=== PATIENT | female | born 1960 | race Caucasian/White ===

== ENCOUNTER 2017-09-26 21:24 | Inpatient (IN) | payer OTHER ==
[~2017-09-26] VITALS: Ht 160 cm; Wt 56.7 kg
[2017-09-26 21:26] VITALS: BP 168/80
[2017-09-26] MEDS ORDERED: LISINOPRIL20 MG PO (21:35)
--- NOTE | 2017-09-26 21:49 | NUR ---
FAMILY ARRIVED AND AT BEDSIDE
[2017-09-26 21:57] LABS: HEMATOCRIT 42.9 % (37.0-47.0); HEMOGLOBIN 14.7 gm/dL (12.0-15.0); MCHC 34.3 g/dL (28.0-37.0); MPV 7.5 fl. (7.2-11.1); NUCLEATED RBCS 0 /100WBC; PLATELET COUNT* 407 thou/uL (150-400); RBC 4.34 mil/uL (4.20-5.00); RDW-CV 12.4 % (10.5-14.5)
[2017-09-26 21:58] LABS: BE 0.3 mmol/L (-2 to +3); HCO3 22.8 mmol/L (22.0-26.0); PCO2 31.2 mmHg (35.0-45.0); PO2 70.1 mmHg (75.0-100.0); pH 7.482 (7.340-7.450)
[2017-09-26 22:00] LABS: CREATININE 1.2 mg/dL (0.6-1.3); POTASSIUM 3.4 mmol/L (3.5-5.1)
[2017-09-26 22:05] LABS: ALBUMIN 3.6 g/dL (3.4-5.0); TOTAL BILIRUBIN 0.3 mg/dL (<0.1-1.0); TOTAL PROTEIN 7.4 g/dL (6.4-8.2)
[2017-09-26] MEDS ORDERED: HYDROCHLOROTHIA25 M2 PO (22:38)
[2017-09-26] MEDS ORDERED: NORCO 10-325 T1 EACH PO (22:38)
[2017-09-26 22:41] LABS: ABSOLUTE LYMPHOCYTES 1.4 thou/uL (0.8-5.3); ABSOLUTE MONOCYTES 0.9 thou/uL (0.0-1.2); ABSOLUTE NEUTROPHILS 15.7 thou/uL (1.6-8.1); PLATELET ESTIMATE INCREASED
--- NOTE | 2017-09-26 23:30 | NUR ---
OBTAINED ROOM ASSIGNMENT FROM THE FINAL INSPECTOR AND TESTER PATIENT NOTIFIED
[2017-09-27] VITALS (8 sets, daily range): BP systolic 132–210; BP diastolic 42–86
[2017-09-27 02:10] LABS: INFLUENZA A ANTIGEN None Detected (None Detect); INFLUENZA B ANTIGEN None Detected (None Detect)
--- NOTE | 2017-09-27 05:32 | NUR ---
PATIENT ARRIVED VIA CART FROM ED AROUND 0015. PT REPORTING NAUSEA AND HEADACHE SINCE ARRIVAL. SEE MAR. NO VOMITTING YET. PT A/OX4, REPORTING BLURRY VISION THAT "IS GETTING BETTER". TELE MONITOR TRACING SR. BP'S ELEVATED, TRENDING DOWN. ON ROOM AIR. IVF INFUSING ORDERED. PT DID VOID THIS AM, BUT MISSED HAT-UNABLE TO MEASURE OR COLLECT UA AT THAT TIME. PT UNSTEADY ON FEET, UP WITH ASSIST X1. BEDALARM IN PLACE, WILL CONTINUE WITH PLAN OF CARE.
--- NOTE | 2017-09-27 07:30 | NUR ---
ASSUMED CARE OF PT ASSESSED AND DOCUMENTED. PT IS ON CARDIAC MONITER TRACING SR HR 70. PT IS A&O. SHE C/O HEAD PAIN AND WAS TREATED WITH MEDICATION BY OFF GOING RN. PT IS ON FALL RISK PER FACILITY PROTOCOL. SHE IS ON ROOM AIR. BED IN LOW POSITION CALL LIGHT IN REACH. WM.
[2017-09-27] MEDS ORDERED: ASPIR 8181 MG PO (09:23)
[2017-09-27] MEDS ORDERED: HYDROCHLOROTHIA25 M2 PO (09:23)
[2017-09-27 10:08] LABS: HEMATOCRIT 37.6 % (37.0-47.0); HEMOGLOBIN 12.8 gm/dL (12.0-15.0); MCH 33.7 pg (26.0-34.0); MCHC 33.9 g/dL (28.0-37.0); MCV 99.2 fL (80.0-100.0); MPV 7.2 fl. (7.2-11.1); RBC 3.79 mil/uL (4.20-5.00); RDW-CV 12.5 % (10.5-14.5); WBC 14.2 thou/uL (4.0-11.0)
[2017-09-27 10:21] LABS: ANION GAP 9 mmol/L (7-16); BUN 13 mg/dL (7-18); CALCIUM 8.1 mg/dL (8.5-10.1); CHLORIDE 109 mmol/L (98-107); CHOLESTEROL 201 mg/dL (<200); CO2 24 mmol/L (21-32); CREATININE 0.8 mg/dL (0.6-1.3); GLUCOSE 108 mg/dL (70-99); HDL CHOLESTEROL 47 mg/dL (>40); LDL CHOLESTEROL 139 mg/dL (<100); MAGNESIUM 1.9 mg/dL (1.8-2.4); POTASSIUM 3.5 mmol/L (3.5-5.1); SODIUM 142 mmol/L (136-145); TC:HDL 4.3 Ratio (Not establshd); TRIGLYCERIDE 77 mg/dL (<150); VLDL 15 mg/dL (<40)
[2017-09-27 10:22] LABS: SERUM ASSESSMENT Clear
[2017-09-27 10:46] LABS: URINE BILIRUBIN 1+ (Negative); URINE BLOOD TRACE (Negative); URINE CLARITY CLEAR; URINE COLOR YELLOW; URINE GLUCOSE-RANDOM NEGATIVE (Negative); URINE KETONES NEGATIVE (Negative); URINE LEUKOCYTES-REFLEX NEGATIVE (Negative); URINE NITRITE-REFLEX POSITIVE (Negative); URINE PROTEIN 1+ (Negative); URINE SPECIFIC GRAVITY >= 1.030 (1.005-1.030); URINE UROBILINOGEN 0.2 E.U./dl (0.2-1.0)
[2017-09-27 10:47] LABS: ICTOTEST (BILI CONFIRMATORY) Negative (Negative)
[2017-09-27 10:55] LABS: BACTERIA-REFLEX 1-9 Few /HPF (None Seen); CASTS None Seen /LPF (None Seen); MUCUS >6 Heavy strn/LPF (None Seen); SQUAMOUS >10 Many /LPF (0-3); URINE RBC None Seen /HPF (0-2); URINE WBC-REFLEX 0-5 Rare /HPF (0-5)
[2017-09-27 10:56] LABS: AMORPHOUS URATES Few /LPF (None Seen)
--- NOTE | 2017-09-27 12:44 | NUR ---
MET WITH PT AND DTR TO DISCUSS HOME SITUATION/DC PLANNING. PT LIVES WITH SPOUSE. SHE IS DISABLED AND HAS A HEARING COMING UP SOON. PT STATES HER SPOUSE JUST STARTED A NEW JOB AND THEY HAVEN'T HAD COVERAGE FOR ABOUT A MONTH OR MORE. PT FOLLOWS WITH DR JONY LAM, GETS HER MEDS AT [facility]. USES NO EQUIPMENT AND IS INDEPENDENT. GAVE PT UNISURED INFO PACKET WITH MEDICATION ASSIST INFO, FIND A PHYSICIAN, DISABILITY INFO AND DISCUSSED. ALSO GAVE PT NUMBER FOR [employer], SHE PLANS TO CONTACT RE: ASSIST WITH HOSPITAL BILL. 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 HOPES TO GO HOME
--- NOTE | 2017-09-27 13:30 | NUR ---
SENT DR ESPOSITO A YOU CALL MD RE PTS CAROTID RESULTS. PER DR ESPOSITO HAVE VASCULAR SURGURY CONSULTED. IF PT REFUSES TO STAY MAKE SURE VASCULAR CAN SEE RIGHT AWATY. SPOKE WITH PT AND SHE IS STAYING.
--- NOTE | 2017-09-27 13:53 | NUR ---
CALLED [place], [facility] FOR MED LIST AT [phone]. WILL SEND LIST TI DR ESPOSITO FOR APPROVAL.
--- NOTE | 2017-09-27 14:38 | EKG ---
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 Cutter: BD : 1960 Requested By: Ondina Mendes Order Number: [id number] MD: Rojelio De Santiago Measurements Intervals [place] Rate: 69 P: 64 IN: 158 QRS: 74 QRSD: 111 T: 62 QT: 441 QTc: 473 Interpretive Statements Sinus rhythm Baseline wander in lead(s) II,aVR,aVF,V2,V3,V4,V5,V6 Compared to ECG 08/05/2008 09:26:34 No significant changes Electronically Signed On 09-27-2017 14:37:53 CDT by Rojelio De Santiago [email or web address] <ELECTRONICALLY SIGNED> By: Rojelio De Santiago MD, FACC 09/27/17 1437 2135 2135 Rojelio De Santiago MD, FAC /EPI
--- NOTE | 2017-09-27 17:34 | NUR ---
PT HAS RESTED IN HER ROOM THIS SHIFT. DAUGHTERS HAVE BEEN AT BEDSIDE AND IS THERE NOW. UA OBTAINED AND SENT TO LAB. PTS MEDICATIONS UPDATED AFTER CALL TO HER PHARMACY. PAIN MEDS GIVEN AND HAVE BEEN EFFECTIVE. VASCULAR SURG HAS BEEN CONSULTED RE US CAROTIDS. EDUCATION GIVEN ON DEMAND. HOURLY ROUNDING COMPLETED. SPOKE WITH PT RE SMOKING CESSATION.
[2017-09-28] VITALS: BP 192/80
[2017-09-28 04:00] VITALS: BP 113/41
--- NOTE | 2017-09-28 06:28 | NUR ---
ASSUMED CARE AROUND 1930. PT A/OX4. ANXIOUS, NAUSEATED, AND REPORTING BACK PAIN AT START OF SHIFT. PRN MEDS GIVEN-SEE MAR. PT ALSO SHOWERED FOR PAIN RELIEF. TELE MONITOR TRACING SR. BP ELEVATED TONIGHT, PRN HYDRALAZINE GIVEN- BP DROPPED TO 89/35 AND TRENDING UP NOW. ON ROOM AIR. IVF INFUSING ORDERED. UP SBA. DAUGHTERS HERE HELPING WITH CARE. PT SLEPT SOME OF THE NIGHT. CALL LIGHT IN REACH, WILL CONTINUE WITH PLAN OF CARE.
[2017-09-28 08:18] VITALS: BP 132/51
[2017-09-28] MEDS ORDERED: LIPITOR 20 MG T20 M1 PO (08:22)
--- NOTE | 2017-09-28 09:26 | NUR ---
ASSUMED CARE OF PT THIS AM AROUND 0715- ADDRESSER IN PLACE ORDERED, TRACING SR- UPON ASSESSMENT PT NOTED TO BE RESTING IN BED, DAUGHTER AT SIDE VISITING- PT A&O X4- CONTINENT OF BOWEL AND BLADDER- SBA WITH TRANSFERS FOR SAFETY- LCTA, RESP EVEN AND UN-LABORED- VSS, O2 SAT 97% ON RA- ABDOMEN SOFT/ROUND/NON-TENDER, BS X4- PT REPORTS SMALL BM 09/27/17- IV NOTED TO RIGHT AC INTACT, IVF INFUSING PRESCIBED- NEW ORDERS NOTED THIS SHIFT FOR LIPITOR 20 Q HS- PLANNED ANGIOGRAM FRO THIS SHIFT, PT AWARE WITH ECHO EDGAR-PT C/O PAIN TO BACK 01/06- REPOSITIONING NOTED, PRN HYROCODNE 2 TABS GIVEN PER PT REQUEST- CALL LIGHT AND PERSONAL BELONGINGS WITH IN REACH- POOR PO INTAKE NOTED THIS AM WITH BREAKFAST- HOURLY ROUNDS IN PLACE R/T SAFETY/NEEDS- ALL NEEDS MET AT THIS TIME-WCTM
[2017-09-28 12:00] VITALS: BP 142/62
[2017-09-28 16:00] VITALS: BP 136/51
--- NOTE | 2017-09-28 17:26 | NUR ---
PT TIARRA RESTING IN BEDN SIDE CHAIR- FAIR PO INTAKE NOTED THIS SHIFT WITH MEALS- IV TO RIGHT AC INTACT AND SL- IVF D/C'D THIS SHIFT- UA NOTED TO BE POSITIVE FOR UTI, PT REPORTS BACK PAIN AND FOUL ODOR WITH URINATION- NOTIFIED WITH ORDERS OBTAINED FOR CIPRO 500 BID X 5 DAYS, PT UPDATED- PRN HYDROCODONE GIVEN X2 THIS SHIFT PER PT REQUEST, PT REPORTS MEICATION TO BE EFFECTIVE- SOMA X1 THIS SHIFT PER PT REQUEST- CTA COMPLETED AND UPDATED IN RESULTS FOR VIEWING- ECHO PLANNED EDGAR- CALL LIGHT AND PERSONAL BELONGINGS WITH IN REACH- PT MAKES NEEDS KNOWN- ALL NEEDS MET AT THIS TIME-WCTM
[2017-09-28 19:40] VITALS: BP 106/35
[2017-09-29] VITALS: BP 110/52
[2017-09-29 04:00] VITALS: BP 125/66
--- NOTE | 2017-09-29 07:02 | NUR ---
ASSUMED CARE AT 1940, ASSESSMENT CHARTED. PATIENT ALERT/ORIENTED X4, RESTING IN BED WITH FAMILY AT BEDSIDE. UP WITH ASSIST/CANE. STATES HAVING PAIN TO BACK, RECEIVED PAIN MEDICATION PRIOR TO SHIFT CHANGE, NOW RATING 3/10, REASSURANCE GIVEN. IV TO RIGHT AC REMOVED DUE TO LEAKING, NEW IV PLACED TO LEFT WRIST. DENIES DIZZINESS. BED ALARM ON. CALL LIGHT WITHIN REACH, ENCOURAGED TO CALL FOR NEEDS.
--- NOTE | 2017-09-29 07:12 | NUR ---
PATIENT FRUSTRATED THROUGH THE NIGHT WITH BED/CHAIR ALARM. REASSURANCE GIVEN. STATES HAVING BACK PAIN OFF AND ON, MEDS PER MAR WITH PARTIAL RELIEF NOTED. BED ALARM ON. WILL MONITOR.
[2017-09-29 08:00] VITALS: BP 117/59
[2017-09-29] MEDS ORDERED: CIPRO500 MG PO (08:09)
[2017-09-29] MEDS ORDERED: LEXAPRO 10 MG T10 M2 PO (08:21)
[2017-09-29 08:43] VITALS: BP 125/66
[2017-09-29 11:30] VITALS: BP 133/62
--- NOTE | 2017-09-29 13:48 | 2DMMODE ---
[place] [address] 2 D/M-MODE ECHOCARDIOGRAM Name: WAQAS LARRY Room: [address] IN [facility]#: [id number] Admission: 09/26/17 Attend Phys: Richard Hoffmann, Discharge: Date of : 56 Date of Service: 09/29/17 1348 Report #: [id number] THIS REPORT FOR: //name// APPROVED REPORT Study performed: 09/29/2017 10:53:29 EXAM: Comprehensive 2D, Doppler, and color-flow Echocardiogram Patient Location: In-Patient Room #: [facility] Status: routine BSA: 1.57 HR: 62 bpm BP: 125/66 mmHg Other Information Study Quality: Good Indications Murmur 2D Dimensions LVEF(%): 74.10 (>50%) IVSd: 9.75 (7-11mm) LVOT Diam: 18.66 (18-24mm) LVDd: 40.67 mm PWd: 10.97 (7-11mm) Ascending Ao: 27.61 (22-36mm) LVDs: 23.37 (25-40mm) Aortic Root: 28.09 mm Lee's LVEF: 74.10 % Volumes Left Atrial Volume (Systole) LA ESV Index: 29.00 mL/m2 Aortic Valve AoV Peak Alex.: 1.56 m/s AO Peak Gr.: 9.71 mmHg LVOT Max P.93 mmHg AO Mean Gr.: 4.60 mmHg LVOT Mean P.08 mmHg LVOT Max V: 1.32 m/s AO V2 VTI: 29.86 cm LVOT Mean V: 0.79 m/s TONYA (VTI): 2.86 cm2 LVOT V1 VTI: 31.25 cm Mitral Valve E/A Ratio: 1.11 MV Decel. Time: 216.52 [place] [address] 2 D/M-MODE ECHOCARDIOGRAM Name: WAQAS LARRY Room: [address] IN [facility].#: [id number] Admission: 09/26/17 Attend Phys: Richard Hoffmann, Discharge: Date of : 56 Date of Service: 09/29/17 1348 Report #: [id number] MV E Max Alex.: 0.86 m/s MV PHT: 62.79 ms MVA (PHT): 3.50 cm2 TDI E/Lateral E': 8.60 E/Medial E': 6.14 Medial E' Alex.: 0.14 m/s Lateral E' Alex.: 0.10 m/s Pulmonary Valve PV Peak Alex.: 1.09 m/s PV Peak Gr.: 4.76 mmHg Tricuspid Valve TR Peak Gr.: 24.62 mmHg RVSP: 29.62 mmHg Left Ventricle The left ventricle is normal size. There is normal LV segmental wall motion. There is normal left ventricular wall thickness. Left ventricular systolic function is normal. The left ventricular ejection fraction is within the normal range. LVEF is 60-65%. The left ventricular diastolic function is normal. Right Ventricle The right ventricle is normal size. The right ventricular systolic function is normal. Atria Left atrium is mildly dilated. The right atrium size is normal. Aortic Valve The aortic valve is normal in structure. No aortic regurgitation is present. There is no aortic valvular stenosis. Mitral Valve The mitral valve is normal in structure. Trace mitral regurgitation. No evidence of mitral valve stenosis. Tricuspid Valve The tricuspid valve is normal in structure. Mild tricuspid regurgitation. The RVSP is __29.6 mmHg. Pulmonic Valve The pulmonary valve is normal in structure. [place] [address] 2 D/M-MODE ECHOCARDIOGRAM Name: WAQAS LARRY Room: [address] IN .R.#: [id number] Admission: 09/26/17 Attend Phys: Richard Hoffmann, Discharge: Date of : 56 Date of Service: 09/29/17 1348 Report #: [id number] Great Vessels The aortic root is normal in size. IVC is normal in size and collapses with >50% inspiration Pericardium There is no pericardial effusion. <Conclusion> LVEF is 60-65%. Left atrium is mildly dilated. <ELECTRONICALLY SIGNED> By: Hosea Meyer MD, FACC 09/29/17 1348 1348 1348 Hosea Meyer MD, FACC /INF
--- NOTE | 2017-09-29 13:55 | NUR ---
DR EPSTEIN CALLED OK TO D/C PT.
--- NOTE | 2017-09-29 14:46 | NUR ---
ASSUMED CARE OF PT THIS AM ASSESSED AND DOCUMENTED. PT HAS BEEN D/C'D TO HOME. ALL CONSULTS OK WITH DC. EDUCATION GIVEN RE MEDICATIONS, FOLLOW-UPS, AND DRS ORDERS. ALL BELONGINGS PACKED UP AND LEFT WITH PT ACCOMPANIED BY STAFF AND FAMILY. IV AND CARDIAC MONITER D/C'D. SCRIPTS GIVEN.
--- NOTE | 2017-09-30 14:44 | CON ---
[address] [address] CONSULTATION Name: WAQAS LARRY Room: [address] IN M.R.#: [id number] Admission: 09/26/17 Attend Phys: Richard Hoffmann MD Discharge: 09/29/17 Date of : 56 Report #: [id number] THIS REPORT FOR: //name// CC: Masha Hoffmann DATE OF SERVICE: 09/29/2017 HISTORY OF PRESENT ILLNESS: The patient is a 57-year-old white female I was asked to see in the hospital today after she had a syncopal spell. The patient states that she had a stress test at [facility] back in 2003 that showed no significant heart disease. She does have a history of chest pain, however, and carries nitroglycerin. She does not exercise on a regular basis because of chronic back pain. Last week, she was not feeling well, was weak, had some vomiting, back pain and loose stools. On the day of admission, she got up, was feeling weak. She had some blurred vision. She went back to bed. She then get up to get out of bed and fell to the ground. She believed she had a brief loss of consciousness. An ambulance was called. She was brought here to [place] and admitted 3 days ago. She had noticed some blood in her stool, she believes from a hemorrhoid. She denied any chest pain, increased shortness of breath, palpitations, seizure activity or edema. PAST MEDICAL HISTORY: Otherwise significant for back surgery, hypertension. No history of diabetes. MEDICATIONS ON ADMISSION: Included lisinopril, hydrocodone for chronic back pain. ALLERGIES: SHE HAS INTOLERANCE TO CODEINE. FAMILY HISTORY: Grandparents had heart disease. SOCIAL HISTORY: She is . 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 She smoked up to 2 packs of cigarettes a day. No alcohol abuse. REVIEW OF SYSTEMS: No history of stroke, peptic ulcer disease, liver disease. She has had recurrent urinary tract infections. No cancer. PHYSICAL EXAMINATION: GENERAL: Revealed a middle-aged female who appeared in no acute distress. VITAL SIGNS: She had a blood pressure of 130/60, pulse 60. She is afebrile. HEENT: She was anicteric, conjunctivae pink. Mucous membranes moist. NECK: Veins nondistended. No carotid bruits. Neck supple. CHEST: Reveals coarse breath sounds bilaterally. CARDIOVASCULAR: Regular rate and rhythm. [place] [address] CONSULTATION Name: AWQAS LARRY Room: [address] IN ..#: [id number] Admission: 09/26/17 Attend Phys: Richard Hoffmann MD Discharge: 09/29/17 Date of : 56 Report #: [id number] ABDOMEN: Soft, nontender. EXTREMITIES: Had no edema. Posterior tibial pulse 1+ bilaterally. SKIN: Warm, dry. NEUROLOGIC: Nonfocal. LYMPHATIC: No adenopathy. MUSCULOSKELETAL: No joint effusion. Her ECG on admission 3 days ago unfortunately is not in her chart. On the monitor, she has been in a sinus rhythm. She has had multiple x-rays since her admission included head CT scan without contrast that was unremarkable. Her chest x-ray, normal heart size, clear lung armstrong. Carotid Doppler study 70% stenosis, left internal carotid artery. LABORATORY WORK: Sodium 142, creatinine 0.8. Liver function studies are normal. Cholesterol 201, triglycerides 77, HDL 47, LDL 139. TSH 0.58. White blood cell count 14.2, hemoglobin 12.8. IMPRESSION AND RECOMMENDATIONS: 1. Syncopal spell. Suspect vasovagal. I would recommend checking an echocardiogram. 2. Hypertension. The patient has been on JHONATAN inhibitor. 3. Carotid stenosis. The patient is being considered for surgery. She appears to have no cardiac contraindication. 4. Tobacco abuse. 5. Chronic back pain. 6. Hyperlipidemia. I would recommend a statin drug. <ELECTRONICALLY SIGNED> By: Hosea Meyer MD, FACC 09/30/17 1444 1318 [id number] Meyer MD, FAC /nt
== END 2017-09-29 14:45 | disposition home or self-care (01) | DRG 68 ==
LOC: M.ERS 21:24 → M.TBA-ER 22:54 → M.2W 22:54
PROVIDERS: Personal Emergency Response Attendant; ADMIT Internal Medicine
DX: I65.22 Occlusion and stenosis of left carotid artery (principal); I16.1 Hypertensive emergency; E87.2 Acidosis; N39.0 Urinary tract infection, site not specified; I10 Essential (primary) hypertension; F17.210 Nicotine dependence, cigarettes, uncomplicated; G89.29 Other chronic pain; M54.9 Dorsalgia, unspecified; E78.5 Hyperlipidemia, unspecified; G43.909 Migraine, unspecified, not intractable, without status migrainosus; K52.9 Noninfective gastroenteritis and colitis, unspecified; Z88.5 Allergy status to narcotic agent; Z88.7 Allergy status to serum and vaccine; Z88.8 Allergy status to other drugs, medicaments and biological substances

== ENCOUNTER → 2018-04-03 | Outpatient (CLI) | payer MEDICARE ==
[~2018-04-03] MED LIST: ASPIR 8181 MG PO; CIPRO500 MG PO; HYDROCHLOROTHIA25 M2 PO; LEXAPRO 10 MG T10 M2 PO; LIPITOR 20 MG T20 M1 PO; LISINOPRIL20 MG PO; NORCO 10-325 T1 EACH PO
== END ==
LOC: M.LAB 04:53
DX: Z01.812 Encounter for preprocedural laboratory examination (principal); I10 Essential (primary) hypertension

== ENCOUNTER 2018-06-06 13:46 | Emergency (ER) | payer MEDICARE ==
[~2018-06-06] VITALS: Ht 157.5 cm; Wt 49.0 kg
[2018-06-06] MEDS ORDERED: OXYCODONE HCL10 MG PO (14:04)
[2018-06-06 14:24] LABS: HEMATOCRIT 41.5 % (37.0-47.0); HEMOGLOBIN 14.3 gm/dL (12.0-15.0); MCH 34.4 pg (26.0-34.0); MCHC 34.6 g/dL (28.0-37.0); MCV 99.6 fL (80.0-100.0); MPV 6.8 fl. (7.2-11.1); NUCLEATED RBCS 0 /100WBC; PLATELET COUNT* 334 thou/uL (150-400); RBC 4.17 mil/uL (4.20-5.00); RDW-CV 12.2 % (10.5-14.5); WBC 10.8 thou/uL (4.0-11.0)
[2018-06-06 14:31] LABS: ANION GAP 9 mmol/L (7-16); BUN 13 mg/dL (7-18); CALCIUM 9.3 mg/dL (8.5-10.1); CHLORIDE 100 mmol/L (98-107); CO2 29 mmol/L (21-32); CREATININE 0.8 mg/dL (0.6-1.3); GLUCOSE 118 mg/dL (70-99); POTASSIUM 3.7 mmol/L (3.5-5.1); SODIUM 138 mmol/L (136-145)
[2018-06-06 14:38] LABS: ALBUMIN 3.7 g/dL (3.4-5.0); ALKALINE PHOSPHATASE 136 U/L (46-116); LIPASE 119 U/L (73-393); SGOT 14 U/L (15-37); SGPT 17 U/L (30-65); TOTAL BILIRUBIN 0.3 mg/dL (<0.1-1.0); TOTAL PROTEIN 7.9 g/dL (6.4-8.2); TROPONIN-I LEVEL <0.06 ng/mL (<0.06)
[2018-06-06 14:53] LABS: URINE BILIRUBIN NEGATIVE (Negative); URINE BLOOD 1+ (Negative); URINE CLARITY CLEAR; URINE COLOR YELLOW; URINE GLUCOSE-RANDOM NEGATIVE (Negative); URINE KETONES NEGATIVE (Negative); URINE LEUKOCYTES-REFLEX NEGATIVE (Negative); URINE NITRITE-REFLEX NEGATIVE (Negative); URINE PROTEIN TRACE (Negative); URINE UROBILINOGEN 0.2 E.U./dl (0.2-1.0)
[2018-06-06 15:01] LABS: SQUAMOUS 0-3 Few /LPF (0-3)
[2018-06-06 15:02] LABS: BACTERIA-REFLEX 1-9 Few /HPF (None Seen); HYALINE CASTS 0-3 Few /LPF (None Seen); MUCUS 0-3 Light strn/LPF (None Seen); URINE RBC 0-2 Rare /HPF (0-2); URINE WBC-REFLEX 0-5 Rare /HPF (0-5)
[2018-06-06 15:03] LABS: CRYSTALS None Seen /LPF (None Seen)
[2018-06-06 15:21] LABS: ABSOLUTE LYMPHOCYTES 1.1 thou/uL (0.8-5.3); ABSOLUTE MONOCYTES 0.2 thou/uL (0.0-1.2); ABSOLUTE NEUTROPHILS 9.5 thou/uL (1.6-8.1); PLATELET ESTIMATE ADEQUATE
[2018-06-06] MEDS ORDERED: ZOFRAN4 MG PO (18:27)
[2018-06-06] MEDS ORDERED: FLAGYL500 M1 PO (18:27)
[2018-06-06] MEDS ORDERED: CIPRO500 M1 PO (18:27)
[2018-06-06] MEDS ORDERED: PERCOCET 5-3251 EACH PO (18:27)
[2018-06-06 18:53] VITALS: BP 182/77
--- NOTE | 2018-06-08 12:17 | EKG ---
[place] [address] ELECTROCARDIOGRAM REPORT Name: WAQAS LARRY [id number] Admission: 06/06/18 Attend Phys: Discharge: 06/06/18 Date of : 56 Report #: [id number] THIS REPORT FOR: //name// [facility] ED Test Date: 2018-06-06 Test Time: 14:10:54 Pat Name: WAQAS LARRY Department: Room: Gender: F Electrical Assembly Technician: Altagracia WEBSTER : 1960 Requested By: Nannette Ledbetter Order Number: [id number] MD: Hosea Meyer Measurements Intervals [place] Rate: 77 P: 57 WV: 146 QRS: 72 QRSD: 110 T: 52 QT: 425 QTc: 482 Interpretive Statements Sinus rhythm Probable left ventricular hypertrophy Compared to ECG 09/26/2017 21:35:43 No significant changes Electronically Signed On 06-08-2018 12:17:08 PRODUCT CRAFTSMAN by Hosea Meyer [email or web address] <ELECTRONICALLY SIGNED> By: Hosea Meyer MD, [facility] 06/08/18 1217 1410 1410 Hosea Meyer MD, FAC /EPI
== END 2018-06-06 19:19 | disposition home or self-care (01) ==
LOC: M.ERS 13:46
PROVIDERS: Nurse Practitioner Family
DX: K52.9 Noninfective gastroenteritis and colitis, unspecified (principal); G89.29 Other chronic pain; M54.5 Low back pain; K59.00 Constipation, unspecified; I10 Essential (primary) hypertension; G43.909 Migraine, unspecified, not intractable, without status migrainosus; Z98.890 Other specified postprocedural states; Z88.5 Allergy status to narcotic agent; Z88.7 Allergy status to serum and vaccine; Z88.8 Allergy status to other drugs, medicaments and biological substances

== ENCOUNTER 2019-01-26 07:43 | Inpatient (IN) | payer MEDICARE ==
[~2019-01-26] VITALS: Ht 152.4 cm; Wt 54.9 kg
[~2019-01-26 07:43] MED LIST changes: +CIPRO500 M1 PO; +FLAGYL500 M1 PO; +OXYCODONE HCL10 MG PO; +PERCOCET 5-3251 EACH PO; +ZOFRAN4 MG PO
[2019-01-26 07:44] VITALS: BP 191/97
[2019-01-26] MEDS ORDERED: HYDROCODON-ACE1 EAC7 PO (07:49)
[2019-01-26] MEDS ORDERED: HYDROCHLOROTHIA25 M2 PO (07:50)
[2019-01-26] MEDS ORDERED: COLACE100 MG PO (07:50)
[2019-01-26] MEDS ORDERED: PLAVIX 75 MG TA75 M1 PO (07:50)
[2019-01-26] MEDS ORDERED: CARISOPRODOL 3350 MG PO (07:50)
[2019-01-26] MEDS ORDERED: DIPHENHIST50 MG PO (07:51)
[2019-01-26 08:25] LABS: HEMATOCRIT 46.1 % (37.0-47.0); HEMOGLOBIN 15.5 gm/dL (12.0-15.0); MCH 33.1 pg (26.0-34.0); MCHC 33.6 g/dL (28.0-37.0); MCV 98.4 fL (80.0-100.0); MPV 6.8 fl. (7.2-11.1); NUCLEATED RBCS 0 /100WBC; PLATELET COUNT* 416 thou/uL (150-400); RBC 4.69 mil/uL (4.20-5.00); RDW-CV 13.4 % (10.5-14.5); WBC 20.6 thou/uL (4.0-11.0)
[2019-01-26 08:33] LABS: ANION GAP 14 mmol/L (7-16); BUN 15 mg/dL (7-18); CALCIUM 9.4 mg/dL (8.5-10.1); CHLORIDE 104 mmol/L (98-107); CO2 23 mmol/L (21-32); CREATININE 1.1 mg/dL (0.6-1.3); GLUCOSE 177 mg/dL (70-99); POTASSIUM 3.9 mmol/L (3.5-5.1); SODIUM 141 mmol/L (136-145)
[2019-01-26 08:42] LABS: ALBUMIN 3.9 g/dL (3.4-5.0); ALKALINE PHOSPHATASE 284 U/L (46-116); LIPASE 72 U/L (73-393); SGOT 21 U/L (15-37); SGPT 21 U/L (30-65); TOTAL BILIRUBIN 0.4 mg/dL (<0.1-1.0); TOTAL PROTEIN 7.3 g/dL (6.4-8.2); TROPONIN-I LEVEL <0.06 ng/mL (<0.06)
--- NOTE | 2019-01-26 09:08 | NUR ---
CT ABD/PEL COMPLEATED PAteint returned to ed
[2019-01-26 09:13] LABS: ABSOLUTE MONOCYTES 0.6 thou/uL (0.0-1.2); ANISOCYTOSIS 1+; PLATELET ESTIMATE ADEQUATE; POIKILOCYTOSIS 1+
--- NOTE | 2019-01-26 13:53 | NUR ---
DR. ESPOSITO PAGED AT THIS TIME DUE TO PT HIGH BP.
[2019-01-26 14:34] LABS: HEMATOCRIT 46.7 % (37.0-47.0); HEMOGLOBIN 15.4 gm/dL (12.0-15.0)
[2019-01-26 14:48] VITALS: BP 205/91
--- NOTE | 2019-01-26 14:48 | NUR ---
REPORT GIVEN TO DOMENICA ZEE WHO IS TO ASSUME PT CARE INPATIENT NURSE.
[2019-01-26 16:25] VITALS: BP 169/73
--- NOTE | 2019-01-26 16:43 | NUR ---
ASSESSMENT COMPLETE. PT ADMITTED WITH COLITIS. GI CONSULT CALLED BY RN. PT IS ALERT AND ORIENTED X4. IV FLUIDS INFUSING. IV PAIN MEDICATION GIVEN NEEDED. PT HAVING DIARRHEA PER PT REPORT, HAT IN TOILET FOR SAMPLE. ISOLATION IN PLACE FOR PENDING CDIFF. PT IS FALL RISK, UP WITH ONE ASSIST. PT IS ON ROOM AIR. BLOOD PRESSURE ELEVATED AT ADMISSION TO FLOOR, PRN HYDRALAZINE GIVEN BP NOW STABLE. SEE ASSESSMENT AND VITALS FOR OTHER DETAILS. CALL LIGHT WITHIN REACH, WILL CONTINUE PLAN OF CARE
--- NOTE | 2019-01-26 17:23 | NUR ---
THIS NURSE AND RETAIL WAREHOUSE SUPERVISOR DEANGELO IN PATIENT ROOM AND NOTICED WOUND TO LEFT THIGH. NURSE ASKED PATIENT ABOUT IT AND SHE SAID "ITS A BLISTER BUT ITS HEALING" NURSE EXPLAINED TO PATIENT PROCESS OF TAKING PICS ON ADMISSION AND DISCHARGE AND PATIENT SAID "NO YOU ARE NOT". PATIENT REFUSING PICTURES AT THIS TIME.
--- NOTE | 2019-01-26 18:34 | EKG ---
[place] [address] ELECTROCARDIOGRAM REPORT Name: WAQAS LARRY Room: [address] ADM IN M.R.#: [id number] Admission: 01/26/19 Attend Phys: Richard Hoffmann MD Discharge: Date of : 56 Report #: [id number] THIS REPORT FOR: //name// [facility] ED Test Date: 2019-01-26 Test Time: 08:35:14 Pat Name: WAQAS LARRY Department: Room: [facility] Gender: F Business Segment Manager: : 1960 Requested By: Doe Herman Order Number: [id number] MD: Rojelio De Santiago Measurements Intervals [place] Rate: 103 P: 65 MD: 158 QRS: 77 QRSD: 110 T: 17 QT: 388 QTc: 508 Interpretive Statements Sinus tachycardia Probable left atrial enlargement Borderline prolonged QT interval Compared to ECG 06/06/2018 14:10:54 Sinus rhythm no longer present Electronically Signed On 01-26-2019 18:34:00 CDT by Rojelio De Santiago [email or web address] <ELECTRONICALLY SIGNED> By: Rojelio De Santiago MD, [facility] 01/26/19 1834 0835 0835 Rojelio De Santiago MD, [facility] /EPI
[2019-01-26 20:20] VITALS: BP 199/101
[2019-01-26 22:52] LABS: HEMATOCRIT 42.6 % (37.0-47.0); HEMOGLOBIN 14.3 gm/dL (12.0-15.0)
[2019-01-27 01:10] VITALS: BP 167/84
[2019-01-27 04:16] LABS: HEMATOCRIT 39.4 % (37.0-47.0); HEMOGLOBIN 13.6 gm/dL (12.0-15.0); MCH 33.9 pg (26.0-34.0); MCHC 34.6 g/dL (28.0-37.0); MCV 98.1 fL (80.0-100.0); MPV 7.4 fl. (7.2-11.1); RBC 4.02 mil/uL (4.20-5.00); RDW-CV 13.6 % (10.5-14.5); WBC 14.8 thou/uL (4.0-11.0)
[2019-01-27 04:43] LABS: ALBUMIN 2.4 g/dL (3.4-5.0); CALCIUM 8.2 mg/dL (8.5-10.1); CREATININE 0.8 mg/dL (0.6-1.3); MAGNESIUM 1.8 mg/dL (1.8-2.4); POTASSIUM 3.5 mmol/L (3.5-5.1); TOTAL BILIRUBIN 0.3 mg/dL (<0.1-1.0); TOTAL PROTEIN 5.5 g/dL (6.4-8.2)
--- NOTE | 2019-01-27 05:29 | NUR ---
PATIENT SLEPT VERY LITTLE THIS SHIFT. IV FLUIDS AND ANTIBIOTICS WERE GIVEN ORDERED. PATIENT HAD POOR PAIN CONTROL WITH IV FENTANYL STATED IT HELPED BUT WAS NOT LASTING LONG. AFTER SEVERAL DOSES PATIENT WAS AGREEABLE TO TAKE HYDROCODONE WITH SOME PO PHENERGRAN THIS MORNING AND STATED SHE HAD MUCH BETTER RELIEF. PATIENT HAS BEEN NPO EXCEPT MEDS AND ICE CHIPS. PATIENT STILL HAVING WATERY STOOLS. WILL CONTINUE TO MONITOR.
[2019-01-27 09:00] VITALS: BP 157/62
[2019-01-27] MEDS ORDERED: AMITRIPTYLINE H25 M2 PO (17:55)
--- NOTE | 2019-01-27 18:27 | NUR ---
I ASSUMED CARE OF THE PATIENT AT 0700. SHE IS ALERT AND ORIENTED X4 AND IS UP AD KHANH TO THE BATHROOM. SHE HAD ZERO BOWEL MOVEMENTS TODAY. BED IS IN THE LOW LOCKED POSITION AND CALL LIGHT IS IN REACH. SHE WENT TO CT AT 0900. RT WAS IN TO SEE HER. FLUIDS ARE FINISHED UP AND MEDS WERE GIVEN. HOURLY ROUNDING WAS COMPLETED AND PATIENT NEEDS WERE MET. PAIN MEDS WERE GIVEN PRN. SHE IS PROGRESSING TOWARDS HER GOALS. UNABLE TO OBTAIN STOOL SAMPLE THAT IS NOT CONTAMINATED WITH URINE. ISOLATION MAINTAINED. WILL CONTINUE TO MONITOR.
[2019-01-27 20:00] VITALS: BP 157/70
--- NOTE | 2019-01-28 06:22 | NUR ---
PATIENT SLEPT PART OF THE NIGHT. IV REMAINS SALINE LOCKED. IV ANTIBIOTICS WERE GIVEN ORDERED. PATIENT WAS GIVEN PAIN MEDICINE WITH SOME RELIEF. PATIENT STILL USING HEATING PAD FOR ABDOMINAL PAIN WELL. PATIENT HAS NOT HAD ANY STOOLS THIS SHIFT. WILL CONTINUE TO MONITOR.
[2019-01-28 07:50] VITALS: BP 184/91
[2019-01-28] MEDS ORDERED: AMLODIPINE BESY10 MG PO (09:43)
--- NOTE | 2019-01-28 14:53 | CON ---
[address] [address] CONSULTATION Name: WAQAS LARRY Room: [address] IN .R.#: [id number] Admission: 01/26/19 Attend Phys: Richard Hoffmann MD Discharge: Date of : 56 Report #: [id number] THIS REPORT FOR: //name// CC: Masha Hoffmann DICTATED BY: Juliana Hernandez [facility] DATE OF SERVICE: 01/27/2019 Please note, at the time of this dictation, the patient was seen and physically examined by myself. REASON FOR CONSULTATION: Abdominal pain, history of ischemic colitis and constipation. HISTORY OF PRESENT ILLNESS: This is a 58-year-old female who presented with a 2-day history of worsening of unrelenting abdominal pain with acute onset. She also had nausea and vomiting and then she had some diarrhea. She states she did not have any bright red blood noted in her stools like she had in the past. She was having left lower quadrant pain, which then kind of started radiating over into the right side. She states she felt like she was chilling and had a fever, and she has had numerous episodes of colitis in the past, with the last one being back in July. She has been told to try MiraLax. She was unable to tolerate MiraLax. She has no medication coverage on her insurance, so she has just been doing Colace and then milk of magnesia periodically. She states her bowels do move daily, but when she describes them, they are large, round, hard balls that she has on a daily basis. The patient states that she did see her vascular surgeon because she has significant peripheral vascular disease. He did have a CT angio on her in October and all was good. The patient does have a history of ongoing back pain, in which she takes chronic pain medications for at home as well. Earlier this year in 2018, she had a colonoscopy that showed moderate left-sided diverticular disease and external hemorrhoids at that time. ALLERGIES: CODEINE, CYCLOBENZAPRINE, MORPHINE, AND TETANUS. MEDICATIONS: From home, Plavix, hydrocodone, HCTZ, carisoprodol, docusate, and Benadryl. PAST MEDICAL HISTORY: Peripheral arterial disease, hypertension, migraines, and chronic back pain. PAST SURGICAL HISTORY: Recently, a carotid endarterectomy in October of this year[place] [address] CONSULTATION Name: WAQAS LARRY John Room: [address]#: [id number] Admission: 01/26/19 Attend Phys: Richard Hoffmann MD Discharge: Date of : 56 Report #: [id number] SOCIAL HISTORY: Smoking, [id number] history. REVIEW OF SYSTEMS: Twelve-point review of systems is essentially negative except what is mentioned in the HPI. PHYSICAL EXAMINATION: VITAL SIGNS: Temperature 36.7, pulse 112, respirations 16, blood pressure 167/84. HEART: Regular rate and rhythm. LUNGS: Clear. ABDOMEN: Soft with diffuse tenderness noted throughout and positive bowel sounds. LABORATORY DATA: Hemoglobin is 13.6, white count is 14.8, and platelets 273. GFR is 73. CT of the abdomen and pelvis shows thickening of the descending and sigmoid, which is more significant than earlier, back in 05/2018, did not show any occlusions at that time. IMPRESSION: 1. Abdominal pain. 2. Constipation. 3. Nausea and vomiting secondary to above. 4. Leukocytosis. 5. History of peripheral vascular disease. 6. History of colonic ischemia. 7. Anticoagulant therapy and Plavix secondary to her peripheral vascular disease. PLAN: 1. CTA pending. 2. We will continue her antibiotics. 3. Attempt to do a better bowel regimen. We will give her some magnesium oxide 400 mg 2 tablets t.i.d. and senna 2 b.i.d. 4. We will see how above works in getting her bowels to move more regularly. Thank you for allowing us to participate in this patient's care. Please do not hesitate to call with any questions in regard to this consult. <ELECTRONICALLY SIGNED> By: Niall Woods MD 01/28/19 1453 1139 [id number] Woods MD /nt
--- NOTE | 2019-01-28 16:15 | NUR ---
REC'D PATIENT FROM 3RD FLOOR TRANSFER. REPORT REC'D FROM TRANSFERRING RN. PATIENT RESTING IN BED. KPAD TO BACK. PATIENT DENIES NURSING NEEDS AT THIS TIME. RT FA SL SITE NOTED WNL. PATIENT INDEP IN RM. ~TJRN
--- NOTE | 2019-01-28 16:39 | NUR ---
PATIENT STARTED ON REG DIET THIS AFTERNOON, PATIENT ONLY TAKING SMALL BITES. PRN VICODIN AND PHENERGAN GIVEN PER ORDERS. CDIFF ISOLATION LIFTED, NO STOOLS NOTED IN 48 HOURS. VASCULAR SAW PATIENT TODAY, NO NEW ORDERS. ABD XRAY THIS AFTERNOON, NEGATIVE. PATIENT UP AD KHANH. PATIENT TRANSFERRED TO ROOM 103 THIS EVENING. REPORT GIVEN TO DOMENICA VALLEJO.
[2019-01-28 17:06] VITALS: BP 129/65
[2019-01-28 20:11] VITALS: BP 153/77
--- NOTE | 2019-01-29 03:42 | NUR ---
I SENT A MESSAGE TO THE [facility] DOCTOR AT 0345 AFTER LETTING THE THREAD GRINDER TOOL KNOW THAT THIS PATIENT HAD NO IV ACCESS. SHE HAS HAD 2 INFILTRATED IV IN THE PAST 24 HOURS AND I WAS UNABLE TO PLACE IV SUCESSFULLY WITH THE AID OF VEIN FINDER WELL. SHE ONLY HAS SCHEDULED FLAGY ON THE AUG. I REQUESTED THAT AN ORAL ANTIBIOTIC BE PRESCIRBED IF POSSIBLE AND THAT SHE DID NOT HAVE IV ACCESS.
--- NOTE | 2019-01-29 04:13 | NUR ---
DR WARD CALLED AT 0412 AND VERBALLY ORDERED FOR FLAGYL 500 MG TID
[2019-01-29 04:34] LABS: HEMATOCRIT 28.4 % (37.0-47.0); MCH 34.1 pg (26.0-34.0); MCV 97.6 fL (80.0-100.0); MPV 6.7 fl. (7.2-11.1); RBC 2.9 mil/uL (4.20-5.00); RDW-CV 13.4 % (10.5-14.5); WBC 7.9 thou/uL (4.0-11.0)
[2019-01-29 04:35] LABS: HEMOGLOBIN 9.9 gm/dL (12.0-15.0)
[2019-01-29 04:45] LABS: CALCIUM 7.9 mg/dL (8.5-10.1); CREATININE 0.7 mg/dL (0.6-1.3); MAGNESIUM 1.7 mg/dL (1.8-2.4); POTASSIUM 3.2 mmol/L (3.5-5.1)
--- NOTE | 2019-01-29 04:50 | NUR ---
PATIENT GLUCOSE LEVEL IS 50. HAVING HER DRINK SUGARY BEVERAGE WILL RECHECK IN 45 MIN
--- NOTE | 2019-01-29 05:32 | NUR ---
rechecked blood sugar is now 102
--- NOTE | 2019-01-29 06:17 | NUR ---
PATIENT REQUESTED PAIN MEDS STEADILY THROUGH SHIFT. SHE WAS ABLE TO AMBULATE TO GET SOME RELIEF FROM GAS PAINS. SHE CONTINUED TO TRY AND HAVE A BM THROUGH THE NIGHT. SHE DID HAVE A LAB DRAW WHICH SHOWED HER BLOOD GLUCOSE AT 50 AT 0445 SO I GAVE HER SOME SODA CHECKED AGAIN AT 0530 AND IT WAS 102. SHE RATED HER PAIN AT 4/10 AT 0600 ROUNDS. WAS NOT ABLE TO GET AN IV SO I CALLED DR WARD AND WAS ABLE TO GET AN ORDER FOR ORAL FLAGYL. SHE IS ON NO OTHER IV MEDS AT THIS TIME.
[2019-01-29 07:52] VITALS: BP 115/53
[2019-01-29] MEDS ORDERED: METRONIDAZOLE500 M4 PO (10:04)
[2019-01-29] MEDS ORDERED: MAGOX 400400 MG PO (10:04)
[2019-01-29] MEDS ORDERED: CIPRO500 MG PO (10:04)
[2019-01-29] MEDS ORDERED: DOK PLUS TABLE1 EACH PO (10:04)
[2019-01-29] MEDS ORDERED: PHENERGAN 25 MG25 M1 PO (10:11)
--- NOTE | 2019-01-29 10:30 | NUR ---
cm completed initial assessment to [facility] on role of cm and to discuss d/c planning. pt alert and conversational. 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 pt asked about assistance w/transportaion home b/c her is work until this evening. cm provided a voucher for taxi. pt denies and needs from cm at this time. has a 'walking stick" and states "i dont need any home health," cm inquired about hh/snf hx. pt became tearful as she talked about her mother passing a week a/g. cm provided empathetic listening and offered to have adalberto talk w/pt. pt refused. stated, she will use bereavement w/hospice they used for her mother. cm to cont to follow to assist as needed.
[2019-01-29 10:58] VITALS: BP 115/53
--- NOTE | 2019-01-29 11:39 | NUR ---
REVIEWED STUDENT NURSE CHARTING AND AGREE
--- NOTE | 2019-01-29 11:39 | NUR ---
PT DISCHARGED AND LEFT UNIT AT 1138 TO HOME WITH NURSING STAFF AND A CAB VOUCHER. NO IV. PAIN CONTROLLED. PT STABLE UPON DISCHARGE. PAPER SCRIPTS AND CARE NOTES GIVEN. PERSONAL ITEMS SENT WITH PT
== END 2019-01-29 11:38 | disposition home or self-care (01) | DRG 377 ==
LOC: M.ERS 07:43 → M.TBA-ER 09:43 → M.3W 09:43 → M.ORTHSURG 01-28 16:05
PROVIDERS: Emergency Medicine; ADMIT Internal Medicine
DX: K92.2 Gastrointestinal hemorrhage, unspecified (principal); K55.042 Diffuse acute infarction of large intestine; R65.10 Systemic inflammatory response syndrome (SIRS) of non-infectious origin without acute organ dysfunction; E44.0 Moderate protein-calorie malnutrition; I74.10 Embolism and thrombosis of unspecified parts of aorta; K55.1 Chronic vascular disorders of intestine; I10 Essential (primary) hypertension; G43.909 Migraine, unspecified, not intractable, without status migrainosus; G89.29 Other chronic pain; I73.9 Peripheral vascular disease, unspecified; M54.9 Dorsalgia, unspecified; D72.829 Elevated white blood cell count, unspecified; F17.210 Nicotine dependence, cigarettes, uncomplicated; I16.0 Hypertensive urgency; K59.09 Other constipation; I65.29 Occlusion and stenosis of unspecified carotid artery; Z79.82 Long term (current) use of aspirin; Z88.6 Allergy status to analgesic agent; Z88.7 Allergy status to serum and vaccine; Z79.01 Long term (current) use of anticoagulants; Z79.891 Long term (current) use of opiate analgesic; Z79.899 Other long term (current) drug therapy

== ENCOUNTER 2019-02-18 16:47 | Emergency (ER) | payer MEDICARE ==
[~2019-02-18] VITALS: Ht 157.5 cm; Wt 52.2 kg
[~2019-02-18 16:47] MED LIST changes: +AMITRIPTYLINE H25 M2 PO; +AMLODIPINE BESY10 MG PO; +CARISOPRODOL 3350 MG PO; +COLACE100 MG PO; +DIPHENHIST50 MG PO; +DOK PLUS TABLE1 EACH PO; +HYDROCODON-ACE1 EAC7 PO; +MAGOX 400400 MG PO; +METRONIDAZOLE500 M4 PO; +PHENERGAN 25 MG25 M1 PO; +PLAVIX 75 MG TA75 M1 PO
[2019-02-18] MEDS ORDERED: NORCO 10-325 T1 EACH PO (17:08)
[2019-02-18] MEDS ORDERED: XANAX 0.25 MG0.25 MG PO (17:10)
[2019-02-18] MEDS ORDERED: SENOKOT-S1 TA2 PO (17:10)
[2019-02-18 17:16] LABS: URINE BILIRUBIN NEGATIVE (Negative); URINE BLOOD NEGATIVE (Negative); URINE CLARITY CLEAR; URINE COLOR YELLOW; URINE GLUCOSE-RANDOM NEGATIVE (Negative); URINE KETONES NEGATIVE (Negative); URINE LEUKOCYTES-REFLEX TRACE (Negative); URINE NITRITE-REFLEX NEGATIVE (Negative); URINE PROTEIN NEGATIVE (Negative); URINE SPECIFIC GRAVITY 1.015 (1.005-1.030); URINE UROBILINOGEN 0.2 E.U./dl (0.2-1.0)
[2019-02-18 17:33] LABS: HYALINE CASTS 4-10 Moderate /LPF (None Seen); MUCUS None Seen strn/LPF (None Seen); SQUAMOUS >10 Many /LPF (0-3)
[2019-02-18 17:34] LABS: BACTERIA-REFLEX 1-9 Few /HPF (None Seen); CRYSTALS None Seen /LPF (None Seen); URINE RBC None Seen /HPF (0-2); URINE WBC-REFLEX 0-5 Rare /HPF (0-5)
[2019-02-18 17:45] LABS: ABSOLUTE LYMPHOCYTES 1.6 thou/uL (0.8-5.3); ABSOLUTE NEUTROPHILS 7.2 thou/uL (1.6-8.1); BASOPHILS 0.3 %; EOSINOPHILS 0.2 %; HEMATOCRIT 34.5 % (37.0-47.0); HEMOGLOBIN 11.6 gm/dL (12.0-15.0); LYMPHOCYTES 16.3 %; MCHC 33.7 g/dL (28.0-37.0); MCV 97.9 fL (80.0-100.0); MONOCYTES 10.3 %; MPV 6.5 fl. (7.2-11.1); NUCLEATED RBCS 0 /100WBC; PLATELET COUNT* 650 thou/uL (150-400); POLYS 72.9 %; RBC 3.52 mil/uL (4.20-5.00); RDW-CV 14.1 % (10.5-14.5); WBC 9.9 thou/uL (4.0-11.0)
[2019-02-18 17:56] LABS: CALCIUM 8.1 mg/dL (8.5-10.1); CREATININE 1.1 mg/dL (0.6-1.3); POTASSIUM 3.9 mmol/L (3.5-5.1)
[2019-02-18 18:01] LABS: ALBUMIN 2.2 g/dL (3.4-5.0); TOTAL BILIRUBIN 0.2 mg/dL (<0.1-1.0); TOTAL PROTEIN 6.7 g/dL (6.4-8.2)
[2019-02-18] MEDS ORDERED: NORCO 5-325 TA1 EAC1 PO (21:49)
[2019-02-18 22:00] VITALS: BP 138/78
== END 2019-02-18 22:01 | disposition home or self-care (01) ==
LOC: M.ERS 16:47
PROVIDERS: Nurse Practitioner Family
DX: K52.9 Noninfective gastroenteritis and colitis, unspecified (principal); I10 Essential (primary) hypertension; G43.909 Migraine, unspecified, not intractable, without status migrainosus; G89.29 Other chronic pain; F17.200 Nicotine dependence, unspecified, uncomplicated; Z98.890 Other specified postprocedural states; Z88.5 Allergy status to narcotic agent; Z88.7 Allergy status to serum and vaccine; Z88.2 Allergy status to sulfonamides

== ENCOUNTER 2019-02-23 00:41 | Inpatient (IN) | payer MEDICARE ==
[2019-02-23] VITALS (7 sets, daily range): BP systolic 132–219; BP diastolic 78–95
[~2019-02-23] VITALS: Ht 157.5 cm; Wt 57.0 kg
--- NOTE | ~2019-02-23 | PROC ---
[address] [address] PROCEDURE REPORT Name: WAQAS LARRY Room: [address] IN .R.#: [id number] Admission: 02/23/19 Attend Phys: Stella Macias MD Discharge: Date of : 56 Report #: [id number] THIS REPORT FOR: //name// For GI report, please see the Provation report in Perceptive 7 content. By: 0650Medical Records Staff OCTAVIO /KAREEM
--- NOTE | ~2019-02-23 | PROC ---
[address] [place] [address] PROCEDURE REPORT Name: WAQAS LARRY Room: [address] IN .R.#: [id number] Admission: 02/23/19 Attend Phys: Stella Macias MD Discharge: Date of : 56 Report #: [id number] THIS REPORT FOR: //name// For GI report, please see the Provation report in Perceptive 7 content. By: 0633Medical Records Staff OCTAVIO /KAREEM
[~2019-02-23 00:41] MED LIST changes: +NORCO 5-325 TA1 EAC1 PO; +SENOKOT-S1 TA2 PO; +XANAX 0.25 MG0.25 MG PO
[2019-02-23 01:04] LABS: ABSOLUTE BASOPHILS 0.1 thou/uL (0.0-0.2); ABSOLUTE MONOCYTES 1.1 thou/uL (0.0-1.2); ABSOLUTE NEUTROPHILS 16.4 thou/uL (1.6-8.1); BASOPHILS 0.4 %; EOSINOPHILS 0.1 %; HEMATOCRIT 37.9 % (37.0-47.0); HEMOGLOBIN 12.8 gm/dL (12.0-15.0); LYMPHOCYTES 10.3 %; MCH 32.4 pg (26.0-34.0); MCHC 33.6 g/dL (28.0-37.0); MCV 96.3 fL (80.0-100.0); MONOCYTES 5.6 %; MPV 6.5 fl. (7.2-11.1); NUCLEATED RBCS 0 /100WBC; POLYS 83.6 %; RBC 3.93 mil/uL (4.20-5.00); RDW-CV 13.8 % (10.5-14.5); WBC 19.6 thou/uL (4.0-11.0)
[2019-02-23 01:16] LABS: PLATELET COUNT* 909 thou/uL (150-400)
[2019-02-23 01:21] LABS: CALCIUM 8.7 mg/dL (8.5-10.1); POTASSIUM 3.7 mmol/L (3.5-5.1)
[2019-02-23 01:25] LABS: ALBUMIN 2.4 g/dL (3.4-5.0); TOTAL BILIRUBIN 0.4 mg/dL (<0.1-1.0); TOTAL PROTEIN 7.2 g/dL (6.4-8.2)
[2019-02-23 02:16] LABS: URINE BILIRUBIN NEGATIVE (Negative); URINE BLOOD NEGATIVE (Negative); URINE CLARITY CLEAR; URINE COLOR YELLOW; URINE GLUCOSE-RANDOM NEGATIVE (Negative); URINE KETONES NEGATIVE (Negative); URINE LEUKOCYTES-REFLEX NEGATIVE (Negative); URINE NITRITE-REFLEX NEGATIVE (Negative); URINE PROTEIN TRACE (Negative)
--- NOTE | 2019-02-23 09:48 | EKG ---
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
[2019-02-23 10:18] LABS: ABSOLUTE BASOPHILS 0.3 thou/uL (0.0-0.2); ABSOLUTE LYMPHOCYTES 0.8 thou/uL (0.8-5.3); ABSOLUTE MONOCYTES 1.6 thou/uL (0.0-1.2); ABSOLUTE NEUTROPHILS 23.4 thou/uL (1.6-8.1); HEMATOCRIT 40.1 % (37.0-47.0); HEMOGLOBIN 12.8 gm/dL (12.0-15.0); LYMPHOCYTES 3.1 %; MCH 31.4 pg (26.0-34.0); MCHC 31.9 g/dL (28.0-37.0); MCV 98.7 fL (80.0-100.0); MONOCYTES 6.2 %; NUCLEATED RBCS 0 /100WBC; POLYS 89.7 %; RBC 4.07 mil/uL (4.20-5.00); WBC 26.1 thou/uL (4.0-11.0)
[2019-02-23 10:24] LABS: MAGNESIUM 2.3 mg/dL (1.8-2.4)
[2019-02-23 10:24] LABS: PLATELET COUNT* 920 thou/uL (150-400)
[2019-02-23 15:23] LABS: AMP/METHAMP Negative (Negative); BARBITURATES Negative (Negative); BENZODIAZEPINES Negative (Negative); COCAINE Negative (Negative); METHADONE Negative (Negative); OPIATES POSITIVE (Negative); PCP Negative (Negative); THC Negative (Negative)
[2019-02-24] VITALS: BP 151/88
[2019-02-24 04:00] VITALS: BP 172/93
[2019-02-24 04:54] LABS: HEMATOCRIT 38.7 % (37.0-47.0); MCH 32.4 pg (26.0-34.0); MCHC 33.6 g/dL (28.0-37.0); MCV 96.4 fL (80.0-100.0); MPV 6.7 fl. (7.2-11.1); NUCLEATED RBCS 0 /100WBC; RBC 4.02 mil/uL (4.20-5.00); RDW-CV 14.1 % (10.5-14.5); WBC 24.7 thou/uL (4.0-11.0)
[2019-02-24 05:10] LABS: ALBUMIN 1.6 g/dL (3.4-5.0); ALKALINE PHOSPHATASE 393 U/L (46-116); ANION GAP 14 mmol/L (7-16); BUN 14 mg/dL (7-18); CALCIUM 7.9 mg/dL (8.5-10.1); CHLORIDE 98 mmol/L (98-107); CO2 18 mmol/L (21-32); CREATININE 0.7 mg/dL (0.6-1.3); GLUCOSE 143 mg/dL (70-99); POTASSIUM 3.7 mmol/L (3.5-5.1); SGOT 36 U/L (15-37); SGPT 17 U/L (30-65); SODIUM 130 mmol/L (136-145); TOTAL BILIRUBIN 0.2 mg/dL (<0.1-1.0); TOTAL PROTEIN 5.8 g/dL (6.4-8.2)
[2019-02-24 05:22] LABS: PLATELET COUNT* 726 thou/uL (150-400)
[2019-02-24 05:25] LABS: CHOLESTEROL 109 mg/dL (<200); HDL CHOLESTEROL 33 mg/dL (>40); LDL CHOLESTEROL 58 mg/dL (<100); TC:HDL 3.3 Ratio (Not establshd); TRIGLYCERIDE 93 mg/dL (<150); VLDL 19 mg/dL (<40)
[2019-02-24 05:26] LABS: SERUM ASSESSMENT Clear
[2019-02-24 06:15] LABS: ABSOLUTE LYMPHOCYTES 0.7 thou/uL (0.8-5.3); ABSOLUTE MONOCYTES 1.5 thou/uL (0.0-1.2); ABSOLUTE NEUTROPHILS 22.5 thou/uL (1.6-8.1); PLATELET ESTIMATE INCREASED
[2019-02-24 06:16] LABS: ANISOCYTOSIS 1+; POIKILOCYTOSIS 1+
[2019-02-24 08:00] VITALS: BP 179/89
[2019-02-24 12:47] VITALS: BP 178/94
[2019-02-24 15:57] VITALS: BP 159/84
[2019-02-24 20:00] VITALS: BP 134/83
[2019-02-25] VITALS: BP 128/71
[2019-02-25 04:00] VITALS: BP 158/83
[2019-02-25 04:32] LABS: ABSOLUTE MONOCYTES 1.4 thou/uL (0.0-1.2); ABSOLUTE NEUTROPHILS 17.6 thou/uL (1.6-8.1); BASOPHILS 0.2 %; HEMATOCRIT 33.1 % (37.0-47.0); LYMPHOCYTES 5.1 %; MCH 32.5 pg (26.0-34.0); MCHC 33.1 g/dL (28.0-37.0); MONOCYTES 6.8 %; NUCLEATED RBCS 0 /100WBC; POLYS 87.9 %; RBC 3.38 mil/uL (4.20-5.00); RDW-CV 14.4 % (10.5-14.5); WBC 20.1 thou/uL (4.0-11.0)
[2019-02-25 04:50] LABS: PLATELET COUNT* 581 thou/uL (150-400)
[2019-02-25 04:58] LABS: ALBUMIN 1.5 g/dL (3.4-5.0); CALCIUM 8.2 mg/dL (8.5-10.1); CREATININE 0.7 mg/dL (0.6-1.3); TOTAL BILIRUBIN 0.2 mg/dL (<0.1-1.0); TOTAL PROTEIN 5.7 g/dL (6.4-8.2)
[2019-02-25 05:02] LABS: POTASSIUM 4.7 mmol/L (3.5-5.1)
[2019-02-25 08:00] VITALS: BP 143/76
--- NOTE | 2019-02-25 14:07 | CON ---
[address] [address] CONSULTATION Name: WAQAS LARRY Room: [address] IN .R.#: [id number] Admission: 02/23/19 Attend Phys: Stella Macias MD Discharge: Date of : 56 Report #: [id number] THIS REPORT FOR: //name// CC: Masha Macias DICTATED BY: Juliana Hernandez [facility] DATE OF SERVICE: 02/24/2019 Please note at the time of this dictation, the patient was seen and physically examined by myself. REASON FOR CONSULTATION: Pancolitis and ileus. HISTORY OF PRESENT ILLNESS: This is a 58-year-old female presented to the Emergency Room with having ongoing left lower quadrant pain, which she has been having it over the past week, which has gotten significantly worse. She states that her bowels have been moving a couple of times a day. She was taking magnesium oxide 2 tablets t.i.d. as well as Senna 2 tablets daily and she states her bowels have been very loose or very soft in nature. However, in her note to the ER, she said she had not had a bowel movement in a week. She was also complaining of increased nausea and vomiting with these episodes, but denied any bright red blood or any coffee ground emesis. The patient was here in December for colonic ischemia and was sent home on antibiotics. She states she was doing okay and did not have any nausea and vomiting up until recently. Last colonoscopy was done in 03/2018 showing external hemorrhoids and left diverticulosis. At that time, she has never had an upper scope done. ALLERGIES: INCLUDE CODEINE, FLEXERIL, TETANUS TOXOID. MEDICATIONS FROM HOME: Aspirin, magnesium oxide, promethazine and hydrocodone, Soma, Benadryl, Zestril, hydrochlorothiazide, Plavix, Colace, Elavil, amlodipine, Poynette. PAST MEDICAL HISTORY: Hypertension, laminectomy, migraines, chronic pain and opioid use, history of colitis, history of diverticulosis and diverticulitis in the past. PAST SURGICAL HISTORY: Carotid endarterectomy, peripheral artery disease, right iliac stenosis, laminectomy x 2. FAMILY HISTORY: Noncontributory. SOCIAL HISTORY: Continues to smoke less than a pack a day. [place] [address] CONSULTATION Name: LARON,ANN N Room: [address]#: [id number] Admission: 02/23/19 Attend Phys: Stella Macias MD Discharge: Date of : 56 Report #: [id number] or illegal drug use. REVIEW OF SYSTEMS: Twelve-point review of systems is essentially negative except what is mentioned in the HPI. PHYSICAL EXAMINATION: VITAL SIGNS: Temperature 36.4, pulse 104, respirations 17, blood pressure 179/89. HEART: Regular rate and rhythm. LUNGS: Clear. ABDOMEN: Soft, positive bowel sounds in all 4 quadrants with some left lower quadrant tenderness noted to palpation. LABORATORY DATA: Hemoglobin is 13, white count is 24.7, platelets 726. GFR is 83. Urine drug screen positive for opioids. CT showing persistent pancolitis with moderate stool noted throughout the colon. Abdominal x-ray this morning shows nonspecific bowel gas pattern, but no ileus or obstruction noted. IMPRESSION: 1. Abdominal pain, left lower quadrant. 2. Nausea and vomiting. 3. Abnormal CT pancolitis. 4. Leukocytosis. 5. Thrombocytosis. 6. History of colonic ischemia earlier in December. 7. Chronic constipation secondary to opioid use. PLAN: 1. Continue with her Senna and MiraLax. 2. Continue antibiotics. 3. May need to consider upper endoscopy if her nausea and vomiting continue. 4. Further recommendations to be made once Dr. Woods sees the patient later today. Thank you for allowing us to participate in this patient's care. Please do not hesitate to call with any questions in regard to this consult. <ELECTRONICALLY SIGNED> By: Niall Woods MD 02/25/19 1407 1143 [id number] Woods MD /nt
[2019-02-25 15:19] VITALS: BP 121/68
[2019-02-25 20:00] VITALS: BP 147/75
[2019-02-26] VITALS: BP 139/69
[2019-02-26 04:00] VITALS: BP 143/72
[2019-02-26 05:04] LABS: ABSOLUTE MONOCYTES 0.8 thou/uL (0.0-1.2); ABSOLUTE NEUTROPHILS 13.3 thou/uL (1.6-8.1); BASOPHILS 0.2 %; HEMATOCRIT 27.1 % (37.0-47.0); LYMPHOCYTES 6.4 %; MCH 31.8 pg (26.0-34.0); MCHC 32.6 g/dL (28.0-37.0); MCV 97.5 fL (80.0-100.0); MONOCYTES 5.3 %; MPV 6.9 fl. (7.2-11.1); NUCLEATED RBCS 0 /100WBC; POLYS 88.1 %; RBC 2.78 mil/uL (4.20-5.00); RDW-CV 14.3 % (10.5-14.5); WBC 15.1 thou/uL (4.0-11.0)
[2019-02-26 05:16] LABS: ALBUMIN 1.2 g/dL (3.4-5.0); CALCIUM 7.6 mg/dL (8.5-10.1); CREATININE 0.6 mg/dL (0.6-1.3); TOTAL BILIRUBIN 0.2 mg/dL (<0.1-1.0); TOTAL PROTEIN 4.7 g/dL (6.4-8.2)
[2019-02-26 05:36] LABS: HEMOGLOBIN 8.9 gm/dL (12.0-15.0); PLATELET COUNT* 423 thou/uL (150-400)
--- NOTE | 2019-02-26 07:52 | CON ---
[address] [address] CONSULTATION Name: WAQAS LARRY Room: [address] IN .R.#: [id number] Admission: 02/23/19 Attend Phys: Stella Macias MD Discharge: Date of : 56 Report #: [id number] THIS REPORT FOR: //name// CC: Masha Macias DATE OF SERVICE: 02/24/2019 INFECTIOUS DISEASE CONSULTATION ATTENDING PHYSICIAN: Dr. Macias. REASON FOR EVALUATION: Colitis, marked leukocytosis and thrombocytosis. HISTORY OF PRESENT ILLNESS: Chart reviewed, patient examined. This is a 58-year-old woman with chronic pain syndrome, also has history of diverticulitis in the setting of diverticulosis, who presented with left lower quadrant pain, seemingly this happened before, onset about a week prior to her admission, did have associated nausea with emesis, did experience some perhaps low-grade fevers, sweats, and some mild dyspnea. Evaluation was undertaken, showed elevated white count of 19.6, repeat was 26.1; also marked elevation in platelets of over 900,000 in the absence of significant anemia. Albumin was 2.4. Lactic acid initially was 2.5, repeat was 0.9. Urinalysis was otherwise unremarkable. CT abdomen and pelvis showed pancolitis with ileus, severe common right iliac stenosis, previously had been on ciprofloxacin, metronidazole as an outpatient. The former was discontinued, placed on piperacillin and tazobactam. She is experiencing a significant amount of associated pain and is requiring narcotic analgesics. She is scheduled to undergo endoscopy. ALLERGIES: CODEINE, TETANUS TOXOID. CURRENT MEDICATIONS: Include oral vancomycin, amlodipine, lisinopril, carisoprodol, Zosyn, p.r.n. analgesics and antiemetics. PAST MEDICAL HISTORY: As noted above, hypertension, migraines, peripheral arterial disease. SOCIAL HISTORY: No illicit drug use. Smokes cigarettes for the last 30 years. No ethanol. FAMILY HISTORY: Noncontributory. REVIEW OF SYSTEMS: Otherwise, unremarkable 10-point review of systems with exception of the above. PHYSICAL EXAMINATION: [place] [address] CONSULTATION Name: LARON,ANN N Room: [address]#: [id number] Admission: 02/23/19 Attend Phys: Stella Macias MD Discharge: Date of : 56 Report #: [id number] GENERAL: She appears chronically ill, undernourished, moderate distress. VITAL SIGNS: Temperature 97.3, pulse 107, respirations 17, blood pressure 178/94. SKIN: Warm, dry. HEENT: Normocephalic. Extraocular muscles intact. NECK: Supple. LUNGS: Diminished breath sounds. Few scattered crackles at the bases. HEART: Regular, some ectopy. Soft systolic murmur. ABDOMEN: Tender to light percussion. There are no overt peritoneal signs. GENITOURINARY AND RECTAL: Deferred. LABORATORY DATA: Blood cultures are sterile thus far. CBC: White count of 24.7, H and H 13.0 and 38.7, platelets of 726,000 down from 920,000. Does have lymphocytopenia and monocytosis. Prealbumin of 12.8. Electrolytes: Sodium 130, potassium 3.7, chloride 98, bicarbonate is 18, anion gap is 14, BUN and creatinine 14 and 0.7, glucose of 143. Hepatic transaminases are unremarkable. Alkaline phosphatase of 393. Albumin is low at 1.6, total protein of 5.8. Chest x-ray showed no acute cardiopulmonary disease. Positive urine drug screen for opiates, which she is taking as prescribed. TSH 1.456. CT abdomen and pelvis, pancolitis. ASSESSMENT: Abdominal pain with evidence of pancolitis. Does have known vasculopathy and the pattern would necessarily fit with ischemic-type process. Did discuss with Dr. Iglesias. I think it is not unreasonable to start oral vancomycin pending any evaluation. Certainly, can entirely exclude a false negative testing, although most recently has been more constipated which is certainly very tenuous at this point. We will monitor expectantly. Add incentive spirometry. Again, we will await findings, upper GI endoscopy. <ELECTRONICALLY SIGNED> By: Jaime Pizarro MD 02/26/19 0752 1541 [id number] Pizarro MD /nt
[2019-02-26 08:00] VITALS: BP 112/61
[2019-02-26 11:59] VITALS: BP 144/83
[2019-02-26 15:59] VITALS: BP 141/74
[2019-02-26 20:00] VITALS: BP 148/77
[2019-02-27] VITALS: BP 128/71
[2019-02-27 04:00] VITALS: BP 138/71
[2019-02-27 04:46] LABS: HEMATOCRIT 24.6 % (37.0-47.0); HEMOGLOBIN 8.1 gm/dL (12.0-15.0); MCH 32.1 pg (26.0-34.0); MCHC 33.2 g/dL (28.0-37.0); MCV 96.6 fL (80.0-100.0); MPV 6.8 fl. (7.2-11.1); RBC 2.54 mil/uL (4.20-5.00); WBC 14.6 thou/uL (4.0-11.0)
[2019-02-27 05:02] LABS: DIRECT BILIRUBIN 0.1 mg/dL (<0.1-0.3)
[2019-02-27 05:13] LABS: ALBUMIN 1.2 g/dL (3.4-5.0); CALCIUM 7.4 mg/dL (8.5-10.1); CREATININE 0.5 mg/dL (0.6-1.3); POTASSIUM 3.7 mmol/L (3.5-5.1); TOTAL BILIRUBIN 0.2 mg/dL (<0.1-1.0); TOTAL PROTEIN 4.7 g/dL (6.4-8.2)
[2019-02-27 08:00] VITALS: BP 172/80
[2019-02-27 11:37] VITALS: BP 171/73
[2019-02-27 15:24] VITALS: BP 157/70
[2019-02-27 20:00] VITALS: BP 152/80
[2019-02-28] VITALS: BP 144/68
[2019-02-28 03:55] VITALS: BP 156/67
[2019-02-28 04:20] LABS: ABSOLUTE LYMPHOCYTES 0.9 thou/uL (0.8-5.3); ABSOLUTE MONOCYTES 1.2 thou/uL (0.0-1.2); ABSOLUTE NEUTROPHILS 12.1 thou/uL (1.6-8.1); BASOPHILS 0.1 %; EOSINOPHILS 0.1 %; HEMATOCRIT 24.7 % (37.0-47.0); HEMOGLOBIN 8.6 gm/dL (12.0-15.0); LYMPHOCYTES 6.5 %; MCH 33.4 pg (26.0-34.0); MCHC 35.1 g/dL (28.0-37.0); MCV 95.3 fL (80.0-100.0); MONOCYTES 8.6 %; MPV 6.6 fl. (7.2-11.1); NUCLEATED RBCS 0 /100WBC; PLATELET COUNT* 408 thou/uL (150-400); POLYS 84.7 %; RBC 2.59 mil/uL (4.20-5.00); RDW-CV 13.9 % (10.5-14.5); WBC 14.3 thou/uL (4.0-11.0)
[2019-02-28 04:33] LABS: ALBUMIN 1.4 g/dL (3.4-5.0); CALCIUM 7.5 mg/dL (8.5-10.1); CREATININE 0.4 mg/dL (0.6-1.3); POTASSIUM 3.4 mmol/L (3.5-5.1); TOTAL BILIRUBIN 0.2 mg/dL (<0.1-1.0)
[2019-02-28 04:38] LABS: PREALBUMIN 8.6 mg/dL (18.0-35.7)
[2019-02-28 04:54] LABS: % SATURATION 44 % (20-39); IRON 36 ug/dL (50-175)
[2019-02-28 07:06] LABS: ESR (SEDRATE) 97 mm/hr (0-30)
[2019-02-28 08:00] VITALS: BP 154/69
[2019-02-28 12:00] VITALS: BP 189/89
[2019-02-28 16:00] VITALS: BP 179/85
[2019-02-28 20:00] VITALS: BP 173/81
[2019-03-01] VITALS: BP 148/75
[2019-03-01 04:00] VITALS: BP 156/75
[2019-03-01 04:53] LABS: ABSOLUTE LYMPHOCYTES 1.1 thou/uL (0.8-5.3); ABSOLUTE NEUTROPHILS 8.3 thou/uL (1.6-8.1); BASOPHILS 0.2 %; EOSINOPHILS 0.3 %; HEMATOCRIT 25.3 % (37.0-47.0); HEMOGLOBIN 8.5 gm/dL (12.0-15.0); LYMPHOCYTES 10.6 %; MCH 31.8 pg (26.0-34.0); MCHC 33.6 g/dL (28.0-37.0); MCV 94.6 fL (80.0-100.0); MONOCYTES 9.6 %; MPV 6.6 fl. (7.2-11.1); NUCLEATED RBCS 0 /100WBC; PLATELET COUNT* 409 thou/uL (150-400); POLYS 79.3 %; RBC 2.68 mil/uL (4.20-5.00); RDW-CV 14.2 % (10.5-14.5); WBC 10.5 thou/uL (4.0-11.0)
[2019-03-01 05:20] LABS: ALBUMIN 1.5 g/dL (3.4-5.0); CALCIUM 7.9 mg/dL (8.5-10.1); CREATININE 0.4 mg/dL (0.6-1.3); POTASSIUM 3.3 mmol/L (3.5-5.1); TOTAL BILIRUBIN 0.2 mg/dL (<0.1-1.0); TOTAL PROTEIN 5.1 g/dL (6.4-8.2)
[2019-03-01 08:00] VITALS: BP 157/77
[2019-03-01 12:30] VITALS: BP 180/89
[2019-03-01 16:00] VITALS: BP 171/85
[2019-03-01 20:00] VITALS: BP 186/94
[2019-03-02] VITALS: BP 159/78
[2019-03-02 04:00] VITALS: BP 174/90
[2019-03-02 04:26] LABS: ABSOLUTE LYMPHOCYTES 1.4 thou/uL (0.8-5.3); ABSOLUTE NEUTROPHILS 6.2 thou/uL (1.6-8.1); BASOPHILS 0.2 %; EOSINOPHILS 0.2 %; HEMATOCRIT 24.4 % (37.0-47.0); HEMOGLOBIN 8.3 gm/dL (12.0-15.0); LYMPHOCYTES 15.9 %; MCH 32.5 pg (26.0-34.0); MCHC 34.2 g/dL (28.0-37.0); MCV 94.8 fL (80.0-100.0); MONOCYTES 11.6 %; MPV 6.5 fl. (7.2-11.1); NUCLEATED RBCS 0 /100WBC; PLATELET COUNT* 382 thou/uL (150-400); POLYS 72.1 %; RBC 2.57 mil/uL (4.20-5.00); RDW-CV 14.3 % (10.5-14.5); WBC 8.6 thou/uL (4.0-11.0)
[2019-03-02 04:38] LABS: CALCIUM 7.7 mg/dL (8.5-10.1); CREATININE 0.4 mg/dL (0.6-1.3); MAGNESIUM 1.3 mg/dL (1.8-2.4); POTASSIUM 3.2 mmol/L (3.5-5.1)
[2019-03-02 08:30] VITALS: BP 188/102
[2019-03-02 15:50] VITALS: BP 174/79
[2019-03-02 20:14] VITALS: BP 176/87
[2019-03-03] VITALS: BP 171/81
[2019-03-03 04:00] VITALS: BP 176/86
[2019-03-03 05:25] LABS: CALCIUM 7.3 mg/dL (8.5-10.1); CREATININE 0.5 mg/dL (0.6-1.3); MAGNESIUM 1.7 mg/dL (1.8-2.4); POTASSIUM 3.5 mmol/L (3.5-5.1)
[2019-03-03 08:00] VITALS: BP 176/86
[2019-03-03 15:51] VITALS: BP 191/90
--- NOTE | 2019-03-03 16:06 | PATH ---
[address] [address] PATHOLOGY RPT PROCEDURE Name: WAQAS LARRY Room: [address] IN ..#: [id number] Admission: 02/23/19 Date of : 56 Discharge: Report #: [id number] Path Case #: [id number] [facility] Accession Number: [id number] . 01 Material submitted: . PART A: cecum - CECAL ULCERATION PART B: colon - PROXIMAL ASCENDING ULCERATION. Modifiers: proximal, ascending PART C: colon - PROXIMAL TRANSVERSE ULCERATION. Modifiers: proximal, transverse PART D: colon - MID TRANSVERSE ULCERATION. Modifiers: mid, transverse PART E: colon - DESCENDING COLON ULCERATION. Modifiers: descending PART F: sigmoid colon - SIGMOID COLON ULCERATION . 01 Clinical history: . Ischemic colitis . 02 Diagnosis: A, B and E: Cecal ulceration, proximal ascending ulceration and descending colon ulceration: - Severe active colitis with ulceration, typical of ischemic colitis, negative for granulomas, viral inclusions and dysplasia. See comment. . C. Proximal transverse ulceration: - Minimal active colitis, negative for granulomas, viral inclusions and dysplasia. See comment. . D. Mid transverse ulceration: - Fibrinopurulent debris, negative for granulomas and viral inclusions. See comment. . F. Sigmoid colon ulceration: - Severe active colitis with ulceration typical of ischemic colitis, and fragment of benign colonic mucosa suggesting hyperplastic polyp, negative for granulomas, viral inclusions and dysplasia. See comment. (HIWOT:kerry; 03/03/2019) QMS/03/03/2019 . 02 Comment: Specimens A, B, and E show similar findings of benign colonic mucosa with fairly discrete active inflammation with ulceration and preservation of the deepest aspect of crypts adjacent to the ulceration. The proximal transverse ulceration (C) shows only minimal active inflammation in benign colonic mucosa, without jose ulceration. No recognizable colonic mucosa is seen in the mid transverse ulceration specimen (D). None of the biopsies show features of chronic inflammation such as crypt distortion and/or prominent basal lymphoplasmacytosis to raise a suspicion [place] [address] PATHOLOGY RPT PROCEDURE Name: WAQAS LARRY Room: [address] IN M.R.#: [id number] Admission: 02/23/19 Date of : 56 Discharge: Report #: [id number] Path Case #: [id number] (HIWOT:[facility] 03/03/2019) . 02 Electronically signed: . Johnnie Rasmussen MD, Pathologist NPI- [id number] . 01 Gross description: . A. Received in formalin labeled "Chelsi, Waqas, cecal ulceration," is a single segment of cooley soft tissue measuring 0.5 cm in maximum dimension. The specimen is entirely submitted in cassette A1. . B. Received in formalin labeled "Chesli, Waqas, proximal ascending ulceration," is a single segment of cooley soft tissue measuring 0.4 cm in maximum dimension. The specimen is entirely submitted in cassette B1. . C. Received in formalin labeled "Chelsi, Waqas, proximal transverse ulceration," is a single segment of cooley soft tissue measuring 0.6 cm in maximum dimension. The specimen is entirely submitted in cassette C1. . D. Received in formalin labeled "Chelsi, Waqas, mid transverse ulceration," is a single segment of cooley soft tissue measuring 0.6 cm in maximum dimension. The specimen is entirely submitted in cassette D1. . E. Received in formalin labeled "Chelsi, Waqas, descending colon ulceration," are multiple segments of possible cooley soft tissue admixed with vegetative material measuring 0.5 x 0.3 x 0.1 cm in aggregate dimensions. The specimen is filtered and entirely submitted in cassette E1. . F. Received in formalin labeled "Chelsi, Waqas, sigmoid colon ulceration," is a single segment of cooley soft tissue measuring 0.6 cm in maximum dimension. The specimen is entirely submitted in cassette F1. (TSD; 03/02/2019) TOB/TOB . 02 Pathologist provided ICD-10: K52.9, K63.3 . 02 CPT . 447695, 101647, 638187, 070313, 191342, 884899 Specimen Comment: A courtesy copy of this report has been sent to Specimen Comment: [phone], , . Specimen Comment: Report sent to ,DR LAM / DR WARD Performed at: 01 [facility] [address], [place], [place] [id number] MD Kristopher Harris MD Phone: [phone] Performed at: 02 [facility] [place] [address] PATHOLOGY RPT PROCEDURE Name: WAQAS LARRY Room: [address] ADM IN M.R.#: [id number] Admission: 02/23/19 Date of : 56 Discharge: Report #: [id number] Path Case #: [id number] [address] [place] [id number] MD Johnnie Rasmussen MD Phone: [phone]
[2019-03-03 20:00] VITALS: BP 174/81
--- NOTE | 2019-03-03 22:06 | PATH ---
[address] [address] PATHOLOGY RPT PROCEDURE Name: WAQAS LARRY Room: [address] IN .R.#: [id number] Admission: 02/23/19 Date of : 56 Discharge: Report #: [id number] Path Case #: [id number] [facility] Accession Number: [id number] . 01 Material submitted: . esophagus - ESOPHAGEAL BIOPSY FOR SEVERE ESOPHAGITIS . 01 Clinical history: . None provided . 02 Diagnosis: "Esophageal biopsy for severe esophagitis", biopsy: - Acute and chronic inflammation, granulation tissue, necroinflammatory debris and fibrinoid necrosis consistent with ulcer bed. (See comment) LBQ/02/26/2019 . 02 Comment: No viable tissue is present for evaluation. Special stains for micro-organisms are pending and will be reported as an addendum. (CLW/db; 02/26/2019) . 02 Addendum: . Properly controlled immunohistochemical and special stains are performed. . Block A1 AE1/AE3 - stains rare degenerated epithelial cells; CMV - negative for viral inclusion; HSV-1 - negative for viral inclusion; HSV-2 - negative for viral inclusion; GMS - negative for fungal organisms. . Clinical and endoscopic correlation is recommended. The final diagnosis remains unchanged. (CLW:romeo; 03/03/2019) . *This test was developed and its performance characteristics determined by [facility]. It has not been cleared or approved by the U.S. Food and Drug Administration. The FDA has determined that such clearance or approval is not necessary. This test is used for clinical purposes. It should not be regarded as investigational or for research. This laboratory is certified under the Clinical Laboratory Improvement Amendments of 1988 (CLIA) as qualified to perform high complexity clinical laboratory testing. [facility]/03/03/2019 Addendum Electronically Signed by Kay Seth MD, Pathologist . 02 Electronically signed: . Kay Seth MD, Pathologist NPI- [id number] [place] [address] PATHOLOGY RPT PROCEDURE Name: WAQAS LARRY Room: [address] IN M.R.#: [id number] Admission: 02/23/19 Date of : 56 Discharge: Report #: [id number] Path Case #: [id number] . 01 Gross description: . Received in formalin labeled "Waqas Larry, esophageal biopsy for severe esophagitis," are 2 segments of cooley soft tissue measuring 1.2 x 0.3 x 0.3 cm in aggregate dimensions and ranging from 0.5 to 0.7 cm in maximum dimension. The specimen is submitted entirely in cassette A1. (TSD; 02/25/2019) TOB/TOB . 02 Pathologist provided ICD-10: K20.9, K22.10 . 02 CPT . 970497, B24556, N67381, 092406 Specimen Comment: A courtesy copy of this report has been sent to Specimen Comment: [phone], , . Specimen Comment: Report sent to , and Performed at: 01 [facility] [address] [place] [id number] MD Kristopher Harris MD Phone: [phone] Performed at: [address] [id number] MD Tobi Isidro MD Phone: [phone]
[2019-03-04 00:04] VITALS: BP 172/72
[2019-03-04 04:00] VITALS: BP 173/73
[2019-03-04 05:29] LABS: HEMATOCRIT 21.9 % (37.0-47.0); HEMOGLOBIN 7.5 gm/dL (12.0-15.0); MCH 32.3 pg (26.0-34.0); MCHC 34.1 g/dL (28.0-37.0); MCV 94.7 fL (80.0-100.0); MPV 6.8 fl. (7.2-11.1); RBC 2.32 mil/uL (4.20-5.00); RDW-CV 14.2 % (10.5-14.5); WBC 8.7 thou/uL (4.0-11.0)
[2019-03-04 05:42] LABS: PROTIME 9.9 Seconds (9.20-11.50)
[2019-03-04 08:00] VITALS: BP 196/87
[2019-03-04 11:30] VITALS: BP 167/69
[2019-03-04 16:00] VITALS: BP 162/73
[2019-03-04 20:00] VITALS: BP 179/71
[2019-03-05] VITALS (22 sets, daily range): BP systolic 122–195; BP diastolic 61–94
[2019-03-05 05:11] LABS: HEMATOCRIT 21.7 % (37.0-47.0); HEMOGLOBIN 7.5 gm/dL (12.0-15.0); MCH 32.5 pg (26.0-34.0); MCHC 34.6 g/dL (28.0-37.0); MCV 93.8 fL (80.0-100.0); RBC 2.32 mil/uL (4.20-5.00); RDW-CV 14.5 % (10.5-14.5); WBC 9.4 thou/uL (4.0-11.0)
[2019-03-05 05:22] LABS: ALBUMIN 1.5 g/dL (3.4-5.0); CALCIUM 7.7 mg/dL (8.5-10.1); CREATININE 0.4 mg/dL (0.6-1.3); MAGNESIUM 1.6 mg/dL (1.8-2.4); POTASSIUM 3.7 mmol/L (3.5-5.1); TOTAL BILIRUBIN 0.2 mg/dL (<0.1-1.0); TOTAL PROTEIN 5.1 g/dL (6.4-8.2)
[2019-03-05 12:33] LABS: HEMATOCRIT 35.4 % (37.0-47.0); MCH 31.4 pg (26.0-34.0); MCHC 33.8 g/dL (28.0-37.0); MCV 92.9 fL (80.0-100.0); MPV 7.2 fl. (7.2-11.1); RBC 3.81 mil/uL (4.20-5.00); RDW-CV 14.5 % (10.5-14.5); WBC 17.9 thou/uL (4.0-11.0)
[2019-03-05 12:41] LABS: CALCIUM 6.9 mg/dL (8.5-10.1); CREATININE 0.5 mg/dL (0.6-1.3); POTASSIUM 3.5 mmol/L (3.5-5.1)
[2019-03-05 12:46] LABS: ALBUMIN 2.5 g/dL (3.4-5.0); TOTAL BILIRUBIN 0.3 mg/dL (<0.1-1.0); TOTAL PROTEIN 5.1 g/dL (6.4-8.2)
[2019-03-06] VITALS (28 sets, daily range): BP systolic 126–193; BP diastolic 62–106
[2019-03-06 04:09] LABS: HEMATOCRIT 33.1 % (37.0-47.0); HEMOGLOBIN 11.1 gm/dL (12.0-15.0); MCH 30.8 pg (26.0-34.0); MCHC 33.5 g/dL (28.0-37.0); MCV 91.9 fL (80.0-100.0); MPV 8.1 fl. (7.2-11.1); NUCLEATED RBCS 0 /100WBC; PLATELET COUNT* 283 thou/uL (150-400); RBC 3.61 mil/uL (4.20-5.00); RDW-CV 14.7 % (10.5-14.5); WBC 19.3 thou/uL (4.0-11.0)
[2019-03-06 04:32] LABS: ALBUMIN 1.8 g/dL (3.4-5.0); CALCIUM 7.6 mg/dL (8.5-10.1); CREATININE 0.4 mg/dL (0.6-1.3); MAGNESIUM 1.8 mg/dL (1.8-2.4); POTASSIUM 4.1 mmol/L (3.5-5.1); TOTAL BILIRUBIN 0.2 mg/dL (<0.1-1.0); TOTAL PROTEIN 4.9 g/dL (6.4-8.2)
[2019-03-06 05:18] LABS: ABSOLUTE EOSINOPHILS 0.4 thou/uL (0.0-0.7); ABSOLUTE LYMPHOCYTES 1.7 thou/uL (0.8-5.3); ABSOLUTE MONOCYTES 0.8 thou/uL (0.0-1.2); ABSOLUTE NEUTROPHILS 16.4 thou/uL (1.6-8.1); ANISOCYTOSIS Occasional; CLUMPED PLTS FEW; PLATELET ESTIMATE ADEQUATE; TOXIC GRANULATION 1+
[2019-03-07] VITALS: BP 125/56
[2019-03-07 04:00] VITALS: BP 112/57
[2019-03-07 04:17] LABS: HEMATOCRIT 26.4 % (37.0-47.0); MCH 30.5 pg (26.0-34.0); MCHC 33.1 g/dL (28.0-37.0); MCV 92.3 fL (80.0-100.0); MPV 8.5 fl. (7.2-11.1); RBC 2.86 mil/uL (4.20-5.00); RDW-CV 15.1 % (10.5-14.5); WBC 17.8 thou/uL (4.0-11.0)
[2019-03-07 04:27] LABS: HEMOGLOBIN 8.7 gm/dL (12.0-15.0)
[2019-03-07 04:34] LABS: ALBUMIN 1.4 g/dL (3.4-5.0); CALCIUM 8.3 mg/dL (8.5-10.1); CREATININE 0.4 mg/dL (0.6-1.3); MAGNESIUM 1.7 mg/dL (1.8-2.4); POTASSIUM 4.2 mmol/L (3.5-5.1); TOTAL BILIRUBIN 0.4 mg/dL (<0.1-1.0); TOTAL PROTEIN 4.8 g/dL (6.4-8.2)
[2019-03-07 08:00] VITALS: BP 104/53
[2019-03-07 11:56] VITALS: BP 101/51
[2019-03-07 15:30] VITALS: BP 119/56
[2019-03-07 20:00] VITALS: BP 123/55
[2019-03-08] VITALS: BP 177/55
[2019-03-08 04:00] VITALS: BP 124/64
[2019-03-08 05:07] LABS: HEMOGLOBIN 7.8 gm/dL (12.0-15.0); MCH 31.5 pg (26.0-34.0); MCHC 33.8 g/dL (28.0-37.0); RBC 2.47 mil/uL (4.20-5.00); RDW-CV 14.7 % (10.5-14.5); WBC 11.9 thou/uL (4.0-11.0)
[2019-03-08 05:34] LABS: ALBUMIN 1.3 g/dL (3.4-5.0); CREATININE 0.5 mg/dL (0.6-1.3); MAGNESIUM 1.7 mg/dL (1.8-2.4); PHOSPHORUS* 3.9 mg/dL (2.5-4.9); POTASSIUM 4.6 mmol/L (3.5-5.1); TOTAL BILIRUBIN 0.5 mg/dL (<0.1-1.0); TOTAL PROTEIN 4.7 g/dL (6.4-8.2)
[2019-03-08 11:30] VITALS: BP 117/54
[2019-03-08 16:00] VITALS: BP 94/48
[2019-03-08 20:35] VITALS: BP 139/67
[2019-03-09] VITALS (7 sets, daily range): BP systolic 95–147; BP diastolic 44–74
[2019-03-09 05:29] LABS: HEMATOCRIT 22.1 % (37.0-47.0); HEMOGLOBIN 7.4 gm/dL (12.0-15.0); MCHC 33.5 g/dL (28.0-37.0); MCV 92.4 fL (80.0-100.0); MPV 7.8 fl. (7.2-11.1); RBC 2.4 mil/uL (4.20-5.00); RDW-CV 14.4 % (10.5-14.5); WBC 10.4 thou/uL (4.0-11.0)
[2019-03-09 06:12] LABS: ALBUMIN 1.2 g/dL (3.4-5.0); CALCIUM 7.9 mg/dL (8.5-10.1); CREATININE 0.5 mg/dL (0.6-1.3); MAGNESIUM 1.9 mg/dL (1.8-2.4); POTASSIUM 4.8 mmol/L (3.5-5.1); TOTAL BILIRUBIN 0.4 mg/dL (<0.1-1.0); TOTAL PROTEIN 4.8 g/dL (6.4-8.2)
--- NOTE | 2019-03-09 17:06 | PATH ---
[address] [address] PATHOLOGY RPT PROCEDURE Name: WAQAS LARRY Room: [address] IN .R.#: [id number] Admission: 02/23/19 Date of : 56 Discharge: Report #: [id number] Path Case #: [id number] [facility] Accession Number: [id number] . 01 Material submitted: . colon - TERMINAL ILEUM, ASCENDING/TRANSVERSE/DESCENDING/SIGMOID COLON AND APPENDIX. Modifiers: ascending, transverse, descending . 01 Clinical history: . Ischemic colitis . 02 Diagnosis: Terminal ileum, ascending/transverse/descending/sigmoid colon and appendix: - Segment of benign terminal ileum, appendix and colon with evidence of ileal and colonic chronic and acute ischemia including discontinuous mucosal necrosis and regenerative features, mural acute inflammation, edema and fibrosis and focal transmural necrosis/perforation and chronic and acute serositis. - Thirteen benign pericolic lymph nodes. - Distal diverticular disease. - See comment. LBQ 03/09/2019 1642 Local . 02 Comment: A small artery within the pericolic fat adjacent to the perforation (A15) shows near occlusive fibrointimal hyperplasia in association with organizing thrombosis. Submucosal black pigment tattooing is noted in a section taken from the distal margin (A2) and black pigment is also noted in histiocytes of multiple pericolic lymph nodes. (HIWOT/db; 03/09/2019) . 02 Electronically signed: . Johnnie Rasmussen MD, Pathologist NPI- [id number] . 01 Gross description: . The specimen is received in formalin, labeled "Waqas Larry, terminal ileum, ascending/transverse/descending/sigmoid colon and appendix". Received is a segment of small bowel measuring 3.3 cm in length by 2.2 cm in diameter contiguous with a segment of colon measuring 74.9 cm in length and ranges in diameter from 2.2 to 4.5 cm. Both margins are stapled closed. The serosal surface of the small bowel is pale cooley and glistening in appearance. The serosal surface of the colon is pink-thomas to dusky thomas-brown at the distal aspect. The attached pericolic fat measures up to 3.5 cm in thickness. There is a moderate amount of attached omentum measuring 17.9 x 6.5 x 2.0 cm. The specimen displays thin, disrupted serosa at the mid aspect of the colon exposing necrotic[place] [address] PATHOLOGY RPT PROCEDURE Name: WAQAS LARRY Room: [address] IN [facility].#: [id number] Admission: 02/23/19 Date of : 56 Discharge: Report #: [id number] Path Case #: [id number] The specimen is opened along the antimesenteric line to reveal light cooley mucosa with normal architectural folds within the small bowel. The ileocecal valve is pale cooley in appearance. 3.7 cm distal to the ileocecal valve, there is an area of cobblestone-appearing light brown mucosa within the colon measuring 3.5 x 3.5 cm, which is 5.0 cm from the proximal margin. Where the colon is previously disrupted, the colonic mucosa is dusky thomas-brown to thomas-green in appearance with overlying possible exudate. There is also overlying exudate on the serosal surface at this area. 6.1 cm distal to this open area, there is a possible light cooley, poorly circumscribed mass measuring 7.5 x 2.1 cm, which is 11.1 cm from the distal margin. Sectioning through this possible mass reveals gross confinement to the mucosa with no extension through the muscularis propria. The remainder of the colonic mucosa is light cooley to green-brown in appearance with normal architectural folds. The distal one half of the colon displays light brown, predominately flattened to granular-appearing mucosa with possible overlying exudate. Distal to the aspect where the colon was previously disrupted, the serosal wall is moderately to severely thickened. A few diverticula are noted near the distal margin. The appendix is present measuring 6.2 cm in length by 0.5 cm in diameter and appears grossly unremarkable. Sectioning through the omentum reveals no grossly distinct nodules or lesions. Sectioning through the attached pericolic fat reveals 13 readily identifiable lymph nodes ranging in size from 0.2 to 0.6 cm in maximum dimensions. The specimen is submitted representatively as follows: . A1 proximal margin A2 distal margin A3 small bowel A4 ileocecal valve A5 patient care representative sections of cobblestone-appearing colonic mucosa near ileocecal valve A6 patient care representative sections of dusky thomas-brown to thomas-green colonic mucosa A7-A9 sections of possible mass near distal margin A10-A11 patient care representative sections of diverticula A12-A14 patient care representative sections of colonic mucosa submitted from proximal to distal aspects A15 patient care representative sections of thin serosa and thickened serosa with overlying exudate at previously opened aspect of colon A16 patient care representative sections of appendix, to include proximal margin and bisected tip A17 patient care representative sections of omentum A18-A20 intact lymph nodes. (CAA; 03/08/2019) QA/QA 03/09/2019 1136 Local . 02 Pathologist provided ICD-10: K55.1, K55.049, K52.9, K65.8 . 02 [place] [address] PATHOLOGY RPT PROCEDURE Name: WAQAS LARRY Room: [address] IN ..#: [id number] Admission: 02/23/19 Date of : 56 Discharge: Report #: [id number] Path Case #: [id number] [facility] . [id number] Specimen Comment: A courtesy copy of this report has been sent to Specimen Comment: [phone], , , . Specimen Comment: Report sent to DR CRUZ, DR WARD,DR LAM / DR GARBER Performed at: 01 [facility] [address], [place], [place] [id number] MD Kristopher Harris MD Phone: [phone] Performed at: 02 [facility] Jerson Hig[address], [place], [place] [id number] MD Johnnie Rasmussen MD Phone: [phone]
[2019-03-10 04:44] VITALS: BP 167/79
[2019-03-10 05:04] LABS: HEMOGLOBIN 7.7 gm/dL (12.0-15.0); MCH 30.4 pg (26.0-34.0); MCHC 33.2 g/dL (28.0-37.0); MCV 91.6 fL (80.0-100.0); MPV 8.1 fl. (7.2-11.1); RBC 2.52 mil/uL (4.20-5.00); RDW-CV 14.5 % (10.5-14.5); WBC 11.4 thou/uL (4.0-11.0)
[2019-03-10 05:32] LABS: ALBUMIN 1.3 g/dL (3.4-5.0); CALCIUM 7.4 mg/dL (8.5-10.1); CREATININE 0.4 mg/dL (0.6-1.3); MAGNESIUM 1.5 mg/dL (1.8-2.4); POTASSIUM 4.2 mmol/L (3.5-5.1); TOTAL BILIRUBIN 0.2 mg/dL (<0.1-1.0); TOTAL PROTEIN 4.9 g/dL (6.4-8.2)
[2019-03-10 08:00] VITALS: BP 147/80
[2019-03-10 12:14] VITALS: BP 129/63
[2019-03-10 15:24] VITALS: BP 156/75
[2019-03-10 19:25] VITALS: BP 157/76
[2019-03-11 01:00] VITALS: BP 149/63
[2019-03-11 04:48] VITALS: BP 132/68
[2019-03-11 08:00] VITALS: BP 156/63
[2019-03-11 11:53] VITALS: BP 114/55
--- NOTE | 2019-03-11 15:47 | OP ---
[address] [address] OPERATIVE REPORT Name: WAQAS LARRY Room: [address] IN [facility]#: [id number] Admission: 02/23/19 Attend Phys: Stella Macias MD Discharge: Date of : 56 Report #: [id number] THIS REPORT FOR: //name// CC: Masha Chavez DATE OF SERVICE: 03/05/2019 PREOPERATIVE DIAGNOSIS: Severe ischemic colitis/recurrent. POSTOPERATIVE DIAGNOSES: Severe ischemic colitis/recurrent, with necrotic splenic flexure and perforation with intraperitoneal abscess. PROCEDURE: Exploratory laparotomy with subtotal colectomy and Ana María ileostomy. ANESTHESIA: General endotracheal. ESTIMATED BLOOD LOSS: Less than 50 mL. COMPLICATIONS: None. INDICATIONS FOR PROCEDURE: The patient is a 58-year-old female who has presented multiple times with severe ischemic colitis. She recently underwent a colonoscopy, which showed severe ischemic colitis, especially in the splenic flexure area. She also had numerous areas of ischemia noted throughout the remainder of her colon with some distal rectosigmoid sparing per Dr. Muñoz the topographical surveyor. DESCRIPTION OF PROCEDURE: After obtaining proper consents and discussing risks and complications with the patient, she was taken to the operating room, laid in the supine position, administered general anesthesia. She was then prepped and draped in the usual sterile fashion including placement of a Chacon catheter. A timeout was performed and we confirmed the appropriate patient and procedure. Preoperative antibiotics had been given. SCDs were in place. We then made a midline incision and to the left of the umbilicus. This was carried down through the skin into the subcutaneous tissue using electrocautery for hemostasis. Once the fascia was encountered, it was incised along the midline, grasped and elevated with Guillermo clamps. The peritoneum was then bluntly opened using a hemostat. We extended the peritoneal and fascial opening for the entire length of the incision. Once this was performed, we then explored the entire abdomen. We immediately identified the tattooed area in the distal rectosigmoid junction. I then followed the sigmoid colon up and above this there was a markedly inflamed and adherent area along the left pelvic sidewall. The entire left colon was markedly inflamed. We then inspected [place] [address] OPERATIVE REPORT Name: WAQAS LARRY Room: [address]#: [id number] Admission: 02/23/19 Attend Phys: Stella Macias MD Discharge: Date of : 56 Report #: [id number] flexure and in this area there appeared to be a very necrotic and perforated portion of the colon right at the splenic flexure. I continued to trace the colon around and the transverse colon appeared fairly normal as did the right colon. However, since there was previous evidence of ischemic changes in this area, we elected to proceed with subtotal colectomy. I also ran the small bowel at this point and found other than some adhesions to the area that were inflamed on the left side, which were easily taken down using blunt finger dissection, there were no abnormalities of the small bowel. I also checked the stomach and the stomach appeared normal as did the liver and spleen. We then placed an Omni retractor in order to better visualize the entire abdomen, cautiously elevating the abdominal wall to assure no injury to the underlying bowel. I then began to take down the white line of Toldt along the left paracolic gutter starting below the area of inflammation, I was then able to free the sigmoid colon using both blunt dissection as well as sharp dissection with Metzenbaum scissors and electrocautery, I was able to free the sigmoid colon from the left abdominal wall. I then continued the dissection up the left paracolic gutter. Again, this area was quite inflamed and the mesentery appeared to be quite shortened in this area. At this point I felt that it would be easiest to transect the rectosigmoid at the area of tattoo and then continue the dissection more proximally after that, so we elevated the distal sigmoid colon, opened an avascular window in the mesentery at the area where the patient had been tattooed. I then fired a MARY-75 across this. I then scored the medial aspect of the mesentery using electrocautery and then used a LigaSure impact device to sequentially clamp and divide the mesentery going all the way up the left colon until we approached the area of the splenic flexure in this area. Again, the mesentery was quite tight and there was abscess and perforation noted with vegetable matter within the peritoneal cavity. Using blunt dissection I was able to dissect the colon away from the abdominal wall. We did get into Gerota's fascia and identified the kidney as well at this time, which was kept out of harm's way. I then still was not able to free the splenic flexure completely, so we elected to move over towards the transverse colon where we opened the lesser sac and then I was able to dissect the transverse colon around to the splenic flexure more distally and then able to free this area up. I was then able to use the LigaSure impact device to sequentially clamp and divide the mesentery and continue along the transverse colon mesentery until we identified the middle colic artery. The middle colic artery was divided using the LigaSure. I then continued the dissection around the hepatic flexure as well assuring no injury to the underlying duodenum and then we continued all the way down to the cecum. I then identified an area in the terminal ileum where we elected to perform the resection. An avascular window was opened in the mesentery and the MARY-75 was fired across this. I then continued the takedown of the mesentery until the entire colon was freed and we then passed this off as a specimen. Next, we turned our attention to the left upper quadrant again where there had been a perforation and gross fecal contamination. We copiously irrigated this area and assured hemostasis. I then again checked the spleen and kidney for any injury and none was noted. [place] [address] OPERATIVE REPORT Name: WAQAS LARRY Room: [address] IN [facility]#: [id number] Admission: 02/23/19 Attend Phys: Stella Macias MD Discharge: Date of : 56 Report #: [id number] bowel to assure there was no other pathology noted and then we prepared the right abdominal wall for ileostomy formation. A circular window of tissue was removed where the patient had been marked previously by our ostomy nurse. I then dissected down to the fascia and a cruciate incision was made in the fascia. We then split the muscle and the peritoneum was opened. We then brought the terminal ileum out through this abdominal wall defect. The serosa of the terminal ileum was secured to the peritoneum using 2-0 PDS sutures. At this point, we placed a 19-Indonesian Alvaro-Walls drain through a separate stab incision in the abdominal wall, this drain was placed down into the pelvis and then up along the left paracolic gutter all the way up to the splenic flexure, the drain was sutured in place using 2-0 nylon suture. We then closed the abdominal wall using a running #1 looped PDS suture. The subcutaneous tissues were then closed using 3-0 Vicryl suture and the skin was closed using sukhjinder. We then matured the ileostomy in standard Ana María fashion. A stoma appliance was placed. The patient was then transported to the recovery room still intubated, but in stable condition. Sponge, needle and instrument counts were all correct at the end of the procedure. <ELECTRONICALLY SIGNED> By: Dago Matthews DO 03/11/19 1547 1549 1804Aevonne Matthews DO /thania
[2019-03-11 16:00] VITALS: BP 135/63
[2019-03-11 19:45] VITALS: BP 153/74
[2019-03-12 00:35] VITALS: BP 151/74
[2019-03-12 04:48] VITALS: BP 124/65
[2019-03-12 08:00] VITALS: BP 144/63
[2019-03-12 12:02] VITALS: BP 123/52
[2019-03-12] MEDS ORDERED: CARAFATE 1 GM TA1 G1 PO (15:23)
[2019-03-12] MEDS ORDERED: CARVEDILOL12.5 MG PO (15:24)
[2019-03-12] MEDS ORDERED: CYMBALTA30 MG PO (15:24)
[2019-03-12] MEDS ORDERED: VISTARIL 25 MG25 M1 PO (15:26)
[2019-03-12] MEDS ORDERED: REGLAN 10 MG TA10 MG PO (15:26)
[2019-03-12] MEDS ORDERED: OXYCODONE HCL 55 MG PO (15:28)
[2019-03-12] MEDS ORDERED: PROTONIX40 M2 PO (15:28)
[2019-03-12] MEDS ORDERED: SIMETHICON CHEW80 M1 PO (15:29)
[2019-03-12 15:33] VITALS: BP 123/52
[2019-03-12 15:58] VITALS: BP 123/68
== END 2019-03-12 19:37 | DRG 853 ==
LOC: M.ERS 00:41 → M.TBA-ER 02:12 → M.ERS 02:12 → M.TBA-ER 02:22 → M.2W 02:22 → M.ICU 03-05 11:53 → M.2W 03-06 17:10
PROVIDERS: Emergency Medicine; Family Medicine; Internal Medicine; Internal Medicine Gastroenterology; Internal Medicine Hematology & Oncology; Nurse Practitioner Adult Health; Surgery; ADMIT Internal Medicine
PROC: 0DB58ZX Excision of Esophagus, Via Natural or Artificial Opening Endoscopic, Diagnostic (ICD-10-PCS; principal; 2019-02-25)
PROC: 05HY33Z Insertion of Infusion Device into Upper Vein, Percutaneous Approach (ICD-10-PCS; 2019-03-02)
PROC: 0DBN8ZX Excision of Sigmoid Colon, Via Natural or Artificial Opening Endoscopic, Diagnostic (ICD-10-PCS; 2019-03-02)
PROC: 0D1B0Z4 Bypass Ileum to Cutaneous, Open Approach (ICD-10-PCS; 2019-03-05)
PROC: 30233N1 Transfusion of Nonautologous Red Blood Cells into Peripheral Vein, Percutaneous Approach (ICD-10-PCS; 2019-03-05)
PROC: 0DTE0ZZ Resection of Large Intestine, Open Approach (ICD-10-PCS; 2019-03-05)
PROC: 3E0336Z Introduction of Nutritional Substance into Peripheral Vein, Percutaneous Approach (ICD-10-PCS; 2019-03-08)
DX: A41.9 Sepsis, unspecified organism (principal); E43 Unspecified severe protein-calorie malnutrition; K65.1 Peritoneal abscess; K85.10 Biliary acute pancreatitis without necrosis or infection; K63.1 Perforation of intestine (nontraumatic); K51.00 Ulcerative (chronic) pancolitis without complications; M31.9 Necrotizing vasculopathy, unspecified; K55.1 Chronic vascular disorders of intestine; K22.10 Ulcer of esophagus without bleeding; E87.1 Hypo-osmolality and hyponatremia; I10 Essential (primary) hypertension; G43.909 Migraine, unspecified, not intractable, without status migrainosus; G89.29 Other chronic pain; I73.9 Peripheral vascular disease, unspecified; D47.3 Essential (hemorrhagic) thrombocythemia; K59.09 Other constipation; F11.90 Opioid use, unspecified, uncomplicated; F17.210 Nicotine dependence, cigarettes, uncomplicated; I70.8 Atherosclerosis of other arteries; E78.5 Hyperlipidemia, unspecified; I65.29 Occlusion and stenosis of unspecified carotid artery; K64.4 Residual hemorrhoidal skin tags; K80.20 Calculus of gallbladder without cholecystitis without obstruction; K57.30 Diverticulosis of large intestine without perforation or abscess without bleeding; E83.42 Hypomagnesemia; K44.9 Diaphragmatic hernia without obstruction or gangrene; D64.9 Anemia, unspecified; I16.0 Hypertensive urgency; Z68.23 Body mass index [BMI] 23.0-23.9, adult; Z88.6 Allergy status to analgesic agent; Z88.7 Allergy status to serum and vaccine; Z88.8 Allergy status to other drugs, medicaments and biological substances; Z79.82 Long term (current) use of aspirin; Z79.899 Other long term (current) drug therapy

== ENCOUNTER 2019-03-12 12:36 | Inpatient (IN) | payer MEDICARE ==
[~2019-03-12] VITALS: Ht 157.5 cm; Wt 43.5 kg
[2019-03-12] MEDS ORDERED: CARAFATE 1 GM TA1 G1 PO (15:23)
[2019-03-12] MEDS ORDERED: CARVEDILOL12.5 MG PO (15:24)
[2019-03-12] MEDS ORDERED: CYMBALTA30 MG PO (15:24)
[2019-03-12] MEDS ORDERED: VISTARIL 25 MG25 M1 PO (15:26)
[2019-03-12] MEDS ORDERED: REGLAN 10 MG TA10 MG PO (15:26)
[2019-03-12] MEDS ORDERED: PROTONIX40 M2 PO (15:28)
[2019-03-12] MEDS ORDERED: OXYCODONE HCL 55 MG PO (15:28)
[2019-03-12] MEDS ORDERED: SIMETHICON CHEW80 M1 PO (15:29)
[2019-03-12 19:25] VITALS: BP 133/69
[2019-03-12 23:38] LABS: URINE BILIRUBIN NEGATIVE (Negative); URINE BLOOD NEGATIVE (Negative); URINE CLARITY SL CLOUDY; URINE COLOR YELLOW; URINE GLUCOSE-RANDOM NEGATIVE (Negative); URINE KETONES NEGATIVE (Negative); URINE LEUKOCYTES-REFLEX TRACE (Negative); URINE NITRITE-REFLEX NEGATIVE (Negative); URINE PROTEIN TRACE (Negative); URINE SPECIFIC GRAVITY 1.025 (1.005-1.030); URINE UROBILINOGEN 0.2 E.U./dl (0.2-1.0)
[2019-03-12 23:56] LABS: HYALINE CASTS 0-3 Few /LPF (None Seen); MUCUS >6 Heavy strn/LPF (None Seen); SQUAMOUS >10 Many /LPF (0-3)
[2019-03-12 23:57] LABS: URINE WBC-REFLEX 6-15 Few /HPF (0-5)
[2019-03-12 23:58] LABS: URINE RBC 0-2 Rare /HPF (0-2)
[2019-03-12 23:59] LABS: BACTERIA-REFLEX 1-9 Few /HPF (None Seen); CRYSTALS None Seen /LPF (None Seen)
[2019-03-13 05:09] LABS: HEMATOCRIT 22.6 % (37.0-47.0); HEMOGLOBIN 7.6 gm/dL (12.0-15.0); MCHC 33.5 g/dL (28.0-37.0); MCV 89.5 fL (80.0-100.0); MPV 7.6 fl. (7.2-11.1); RBC 2.53 mil/uL (4.20-5.00); RDW-CV 14.6 % (10.5-14.5); WBC 11.2 thou/uL (4.0-11.0)
[2019-03-13 05:23] LABS: CALCIUM 8.2 mg/dL (8.5-10.1); CREATININE 0.6 mg/dL (0.6-1.3)
--- NOTE | 2019-03-13 05:44 | NUR ---
ASSUMED CARE AT 1930 WHEN PATIENT WAS ADMITTED INTO ROOM 333 FOR DEBILITY. ASSESSMENT COMPLETED. TAKES MEDS WHOLE WITH GRAHAM RODNEY BECAUSE SHE HAS PROBLEMS SWALLOWING FROM WHEN SHE HAD AN NG TUBE. SHE ALSO DOES NOT WANT TO HAVE LARGE PILLS, SUCH SOMA. SEE MAR FOR MEDS TAKEN. MEDICATED FOR PAIN WITH IMPROVEMENT. HAS ILEOSTOMY, DRAINING BROWN LIQUID STOOL, APPLIANCE INTACT. HAS GRISELDA TO LUQ, DRAINING PINK FLUID. INCISION MIDLINE, SHAHNAZ C/D/I QING. STATES SHE DRAGS HER RIGHT FOOT BECAUSE SHE HAS A 40% BLOCKAGE IN HER CIRCULATION AND SEES A VASCULAR SURGEON FOR THAT. UP WITH MIN ASSIST, GAIT BELT, WALKER. AMB TO TOILET, VOIDED AND DID CARES PER SELF. U/A SENT. ASSISTED WITH EMPTYING OSTOMY BAG. NURSING EMPTIES GRISELDA. USING I.S. OFTEN. TURNS SELF. MOVES WELL IN BED. HOURLY ROUNDS CONTINUE. BED ALARM ON. CALL LITE IN REACH.
[2019-03-13 08:17] VITALS: BP 105/57
--- NOTE | 2019-03-13 16:12 | NUR ---
ASSUMED CARE AT 0730. ALERT ORIENTED PLEASANT COOPERATIVE. HX OF DEBILITY HAS AN ILEOSTOMY MIDLINE INCISION QING WITH SHAHNAZ AND A GRISELDA DRAIN. TRANSFERS WITH SBA G BELT CANE AMBULATES TO BR TO VOID. TAKES MEDS WHOLE IN SHERBET. FEEDS SELF APPETITE FAIR. MEDICATED X 2 FOR PAIN BACK AND INCISIONAL. BP RUNNING LOW THIS AFTERNOON DENIED DIZZINESS THINKS PERHAPS HER BP MEDS POSSIBLY NEED ADJUSTED WILL REFER THIS TO IN A.M. PARTICIPATING IN THERAPIES TODAY.
[2019-03-13 20:32] VITALS: BP 137/69
--- NOTE | 2019-03-14 01:26 | NUR ---
ASSUMED CARE AT 1930. PATIENT RESTING IN BED. TURNS SELF. COLOSTOMY DRAINING BROWN LIQUID. INCISION QING, SHAHNAZ INTACT. GRISELDA INTACT. TAKES PILLS WHOLE IN ORANGE SHERBET. TOOK PAIN MEDS AT HS. OBSERVED SLEEPING. HOURLY ROUNDS CONTINUE. BED ALARM ON. CALL LITE IN REACH.
[2019-03-14 05:01] LABS: ABSOLUTE BASOPHILS 0.1 thou/uL (0.0-0.2); ABSOLUTE EOSINOPHILS 0.2 thou/uL (0.0-0.7); ABSOLUTE LYMPHOCYTES 2.3 thou/uL (0.8-5.3); ABSOLUTE MONOCYTES 0.9 thou/uL (0.0-1.2); ABSOLUTE NEUTROPHILS 7.2 thou/uL (1.6-8.1); BASOPHILS 0.7 %; EOSINOPHILS 1.7 %; HEMATOCRIT 24.3 % (37.0-47.0); LYMPHOCYTES 21.7 %; MCH 29.8 pg (26.0-34.0); MCHC 33.1 g/dL (28.0-37.0); MCV 90.1 fL (80.0-100.0); MONOCYTES 8.8 %; MPV 7.4 fl. (7.2-11.1); NUCLEATED RBCS 0 /100WBC; PLATELET COUNT* 525 thou/uL (150-400); POLYS 67.1 %; RDW-CV 14.8 % (10.5-14.5); WBC 10.8 thou/uL (4.0-11.0)
--- NOTE | 2019-03-14 05:37 | NUR ---
SLEPT AFTER TAKING HS MEDS. UP TO VOID ONCE. COLOSTOMY INTACT. GRISELDA INTACT. TURNS SELF. TOOK PAIN PILL WITH WATER. HOURLY ROUNDS CONTINUE. BED ALARM ON. CALL LITE IN REACH.
[2019-03-14 07:00] VITALS: BP 106/56
--- NOTE | 2019-03-14 15:26 | NUR ---
ASSUMED CARE AT 0730. ALERT ORIENTED PLEASANT COOPERATIVE. HX OF DEBILITY HAS MIDLINE INCISION SHAHNAZ QING NO REDNESS OR DRAINAGE. J P DRAIN L SIDE WITH PINK DRAINAGE NOTED. ILEOSTOMY PATENT WITH GREENISH LIQUID STOOL IN POUCH PT. STATES MORE GAS IN POUCH EMPTIES IT WITH SUPERVISION OF NURSING STAFF. AMBULATES WITH CANE G BELT TO BR TO VOID ABLE TO DO HYGEINE AND CLOTHING ADJUSTMENTS. MEDICATED WITH PRN MED FOR BACK AND INCISIONAL PAIN X 1 WITH SOME RELIEF STATED. APPETITE FAIR TAKING MEDS WITH WATER WITHOUT DIFFICULTY. USES CALL LIGHT FOR ASSISTANCE.
[2019-03-14 19:30] VITALS: BP 125/61
--- NOTE | 2019-03-15 03:00 | NUR ---
ASSUMED CARE @ 1939-03/14-SUN.AWAKE IN BED W/ILEOSTOMY BAG INTACT.GRISELDA IN PLACE. WANTS SIDERAILS X2 UP.AT 1949-INSERTION SITE GRISELDA-PINK.REQUESTED DRSG & APPLIED @ 1949.GRISELDA TUBING TAPED SINCE IT IS LONG.HS MEDS TAKEN W/ ORANGE GAVINT @ 2109.PRN XANAX 0.25 MG ORAL GIVEN @ 2103-PER PT'S REQUEST.SEE PAIN MANAGEMENT @ 7-03/15-FRIDAY.PRN SIMETHICONE ONE TAB ORAL GIVEN @ 10-FOR INDIGESTION. 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
--- NOTE | 2019-03-15 05:58 | NUR ---
SLEEPING SINCE 2200 & SLEPT GOOD ALL NIGHT.BRP X2 TO VOID.EMPTIED ILEOSTOMY BAG @ BEDSIDE W/ SUPERVISION @ 0350.GRISELDA OUTPUT-8 ML ONLY.TOOK ORANGE SHERBET X 3 W/ MEDS.TOOK ALL TURKEY SANDWICH HS SNACKS.SEE 2ND PAIN MANAGEMENT @ 3864.
[2019-03-15 07:39] VITALS: BP 107/47
--- NOTE | 2019-03-15 15:42 | NUR ---
SW met with pt to complete initial assessment, introduce self, and SW role in inpt rehab unit. Pt alert, oriented, pleasant. 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 Pt lives at home with . Pt has needed DME at home. Pt has good support system in family and friends. Pt preference for HH care at dc is [facility]. Pt explained that she has SSDI since last year and that she plans to try to arrange for rx plan and/or secondary plan. Pt uses [facility]. SW discussed team conference on Friday; pt is hopeful to be able to dc home soon. SW to continue to follow to assist with safe dc planning.
--- NOTE | 2019-03-15 17:57 | NUR ---
ASSUMED CARE AT 0730. ALERT ORIENTED PLEASANT COOPERATIVE. HX OF DEBILITY DUE TO ABDOMINAL SURGERY MIDLINE INCISION WITH SHAHNAZ AND GRISELDA DRAIN PATENT WITH PINK RED DRAINAGE. ILEOSTOMY PATENT WITH GREENISH LOOSE STOOL. PT. EMPTIES THIS INDEPENDENTLY IN BR TOILET. DR. CRUZ HERE AND PT. MAY SHOWER THEY MAY REMOVE J P DRAIN TOMORROW. PARTICIPATING IN THERAPIES THROUGHOUT THE DAY. MEDICATED X 2 WITH PRN PAIN MED TODAY BACK AND ABDOMINAL PAIN WITH SOME RELIEF STATED. USES CALL LIGHT APPROPRIATELY FOR ASSIST. APPETITE FAIR TAKING MEDS WITH WATER.
[2019-03-15 19:30] VITALS: BP 112/65
--- NOTE | 2019-03-16 01:33 | NUR ---
ASSUMED CARE @ 1944-03/15-FRIDAY.AWAKE IN BED W/ HOB UP.GRISELDA IN PLACE W/ DRSG ON. 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
--- NOTE | 2019-03-16 05:10 | NUR ---
SLEEPING SINCE 2134 & SLEPT GOOD ALL NIGHT.AWAKENED BY LAB @ 0400-FOR BLOOD DRAW.BRP W/ SBA X2.TOOK ONLY ONE ORANGE SHERBET HS SNACK.AT 444-RESTLESS. CALLED FOR SBA TO WALK AROUND ROOM & GET CLOTHES FOR AM.TO REMOVE SHAHNAZ & LIZ GATES TODAY-03/16-FRIDAY.
[2019-03-16 05:35] LABS: HEMATOCRIT 25.9 % (37.0-47.0); HEMOGLOBIN 8.8 gm/dL (12.0-15.0); MCH 30.6 pg (26.0-34.0); MPV 7.9 fl. (7.2-11.1); RBC 2.88 mil/uL (4.20-5.00); RDW-CV 14.6 % (10.5-14.5); WBC 14.7 thou/uL (4.0-11.0)
[2019-03-16 06:13] LABS: CALCIUM 8.8 mg/dL (8.5-10.1); CREATININE 0.7 mg/dL (0.6-1.3); POTASSIUM 4.3 mmol/L (3.5-5.1); TOTAL BILIRUBIN 0.1 mg/dL (<0.1-1.0); TOTAL PROTEIN 6.3 g/dL (6.4-8.2)
--- NOTE | 2019-03-16 06:38 | NUR ---
patient emptied ileostomy bag @ 0540 W/ SMALL,LIQUID BM-125 ML.GRISELDA-6 ML.SEE 2ND PAIN MANAGEMENT @ 6114.
[2019-03-16 08:00] VITALS: BP 113/67
--- NOTE | 2019-03-16 16:38 | NUR ---
ASSUMMED CARE OF PT AT 0730, PT ALERT AND ORIENTED, PT TRANSFERS WITH SBA FIONA AND DANILO, PT COMPLAINS OF ABDOMINAL PAIN AROUND INCISION AND DRAIN EARLY THIS AM, SURGERY REMOVED GRISELDA DRAIN AND SHAHNAZ AND SINCE REMOVAL PT STATES HER PAIN HAS INCREASED, PT ALSO COMPLAINS OF NAUSEA, NO EMESIS, MEDICATED ORDERED, PT DID PARTICIPATE IN ALL THERAPIES, RESTED THIS PM BUT STATES THE PAIN IS DIFFERENT SINCE DRAIN REMOVED, SEEMS WORSE, PAIN MEDICATIONS DO TAKE THE EDGE OFF BUT DO NOT TOTALLY RELIEVE PAIN, ASSESSMENT COMPLETE, HOURLY ROUNDING COMPLETE, HAD LUNCH IN DININGROOM, WILL CONTINUE TO MONITOR.
[2019-03-16 19:30] VITALS: BP 117/61
--- NOTE | 2019-03-16 19:30 | NUR ---
OSTOMY NURSE - PATIENT NOW ON INPATIENT ACUTE REHAB UNIT, PROGRESSING WELL TOWARD GOAL OF GOING HOME - SHE HOPES MAYBE IN A FEW DAYS. PER PATIENT AND NURSES, SHE HAS BEEN EMPTYING HER ILEOSTOMY POUCH WITH MINIMAL ASSISTANCE. ABDOMEN NON-DISTENDED AND SOFT. MIDLINE ABDOMINAL INCISION OPEN TO AIR WITH STERISTRIPS. GRISELDA DRAIN LLQ WAS PULLED TODAY - PATIENT REPORTS STILL WITH ABDOMINAL PAIN FROM DRAIN REMOVAL. DRESSING TO SITE DRY & INTACT. ILEOSTOMY STOMA DARK PINK, MOIST, MINIMAL EDEMA, PROTRUDES WELL AND MUCOCUTANEOUS INCISION WELL APPROXIMATED. PERISTOMAL SKIN WITH SLIGHT FUNGAL RASH DEVELOPING IMMEDIATELY AROUND STOMA - ORDERED NYSTATIN POWDER AND INSTRUCTED PATIENT TO APPLY LIGHTLY, BRUSH EXCESS AWAY BEFORE APPLYING POUCH. DRAINING MODERATE AMOUNTS OF LOOSE BROWN STOOL. PATIENT EMPTIED POUCH INDEPENDENTLY, AND CHANGED POUCH WITH MINIMAL ASSISTANCE. SHE HAS RECEIVED THE [employer]URE STARTS PROGRAM PACKET, & WILL NEED SOME ADDITIONAL HOME HEALTH FOLLOW-UP AT DISCHARGE.
--- NOTE | 2019-03-17 02:13 | NUR ---
ASSUMED CARE @ 1939-03/16-.AWAKE IN BED W/ HOB UP,FAMILY VISITING @ THIS TIME.ILEOSTOMY BAG IN PLACE.WARM BLANKET PUT ON PATIENT @ 1999-PER HER REQUEST.DRSG INTACT GRISELDA INSERTION SITE.REFUSED HS COREG.BP-117/61.PRN XANAX 0.25 MG ORAL GIVEN @ 2030-PER PT'S REQUEST.SEE PAIN MANAgement @ 2150.SMALL AMOUNT PINKISH DRAINAGE FROM INCISION SITE-BELLY BUTTON AREA.DRSG APPLIED @ 2219.ON HOURLY ROUNDS.
[2019-03-17 05:30] VITALS: BP 125/65
--- NOTE | 2019-03-17 05:43 | NUR ---
SLEPT LATE @ 2300.AWAKE @ 0300 & 0500.EMPTIED ILEOSTOMY BAG ONCE ONLY W/ MOD. LIQUID BM.BRP X1 W/ SBA.TOOK ONLY SODA HS SNACKNO EPISODE OF NAUSEA DURING NIGHT.IN @ 1930-105.IN CHECKED 4X DURING NIGHT.RUNS 104-106 REGULAR.IN @ 0209-828-THOVKYW.INFORMED PATIENT- WILL INFORM DAY NURSE OF ELEVATED IN SO DAY RN CAN NOTIFY HOSPITALIST.
[2019-03-17 07:31] VITALS: BP 100/66
--- NOTE | 2019-03-17 16:14 | NUR ---
DANNY and Dr Kwok met with pt to review team conference summary and plan for pt to be ready to dc home on Friday. Pt was very grateful and in agreement with plan. Pt to have HH services arranged for dc; pt preference is [facility]. Pt has all needed DME already. SW to continue to follow to assist with safe dc planning.
--- NOTE | 2019-03-17 18:15 | NUR ---
ASSUMMED CARE OF PT AT 0730, PT ALERT AND ORIENTED, TRANSFERS WITH SBA, FIONA CARRASCO, PT COMPLAINS OF PAIN IN ABDOMINAL AREA, MEDICATED PER ORDER, MIDLINE INCISION DRAINING SMALL AMOUNT OF SEROUS SANGUINOUS DRAINAGE, STERI STRIPS REAPPLIED TO MID INCISION, DRESSING APPLIED, CHANGED X 1 PER PT REQUEST, DRAIN SITE HAS SMALL AMOUNT OF SEROUS SANGUINOUS DRAINAGE, DRESSING CHANGED X 1, ILEOSTOMY DRAINING BROWN/GREEN LIQUID STOOL, PT COMPLAINS OF A PANIC ATTACK THIS PM, PT STATES TAKES XANAX AT HOME, REQUESTS MEDICATION, GIVEN X 1, WHICH ALLEVIATED ANXIETY, APETITE DECREASED, DENIES NAUSEA, PARTICIPATED IN ALL THERAPIES, HOURLY ROUNDING COMPLETED ASSESSMENT COMPLETE, WILL CONTINUE TO MONITOR.
[2019-03-17 19:23] VITALS: BP 110/69
--- NOTE | 2019-03-18 05:48 | NUR ---
ASSUMED PT CARE AT 1930. PT ALERT AND ORIENTED X4, POLITE AND COOPERATIVE WITH CARES. PAIN MEDICATION GIVEN FOR COMPLAINT OF ABDOMINAL PAIN. MIDLINE INCISION DRAINING SMALL AMOUNT OF SERO SANGUINOUS DRAINAGE. STERI STRIPS TO MIDLINE INCISION INTACT. ILEOSTOMY DRAINING BROWN/GREEN LIQUID STOOL. PT UP TO BATHROOM TO VOID WITH SUPERVISION. PT SLEPT WELL OVERNIGHT. DENIED NEED FOR PRN XANAX. USES CALL LIGHT APPROPRIATELY. HOURLY ROUNDING IN PROGRESS, WILL CONTINUE TO MONITOR.
[2019-03-18 08:00] VITALS: BP 97/56
[2019-03-18] MEDS ORDERED: PROTONIX40 M2 PO (12:50)
[2019-03-18] MEDS ORDERED: NORCO 10-325 T1 EACH PO (12:50)
[2019-03-18] MEDS ORDERED: MAGOX 400400 MG PO (12:50)
[2019-03-18] MEDS ORDERED: NORVASC5 MG PO (12:50)
[2019-03-18] MEDS ORDERED: ONDANSETRON HCL4 M2 PO (12:50)
[2019-03-18] MEDS ORDERED: CARAFATE 1 GM TA1 G1 PO (12:50)
[2019-03-18 20:00] VITALS: BP 100/58
--- NOTE | 2019-03-19 05:51 | NUR ---
ASSUMED PT CARE AT 1930. PT ALERT AND ORIENTED X4, POLITE AND COOPERATIVE WITH CARES. MIDLINE INCISION WITH STERISTRIPS INTACT. ILEOSTOMY DRAINING BROWN/GREEN LIQUID STOOL, PT DOES ILEOSTOMY CARES. PT UP TO BATHROOM TO VOID, PT TOLD BY DR. DELANEY SHE COULD BE MOD I IN ROOM. PRN PAIN MEDICATION TWICE THIS SHIFT FOR ABDOMINAL AND BACK PAIN. PRN XANAX AT HS PER PT REQUEST. PT SLEPT WELL OVERNIGHT. USES CALL LIGHT APPROPRIATELY, HOURLY ROUNDING IN PROGRESS, WILL CONTINUE TO MONITOR.
[2019-03-19 07:30] VITALS: BP 92/56
[2019-03-19 10:25] VITALS: BP 92/56
--- NOTE | 2019-03-19 10:26 | NUR ---
Pt to dc home with today and pt preference of [facility] to follow. SW faxed referral and final orders/med list to [facility].
== END 2019-03-19 13:45 | disposition home health service (06) | DRG 393 ==
LOC: M.REH 12:36
PROVIDERS: Family Medicine; ADMIT Physical Medicine & Rehabilitation
DX: K55.9 Vascular disorder of intestine, unspecified (principal); A41.9 Sepsis, unspecified organism; E43 Unspecified severe protein-calorie malnutrition; K57.20 Diverticulitis of large intestine with perforation and abscess without bleeding; Z68.1 Body mass index [BMI] 19.9 or less, adult; K56.7 Ileus, unspecified; K22.10 Ulcer of esophagus without bleeding; I10 Essential (primary) hypertension; D47.3 Essential (hemorrhagic) thrombocythemia; I16.0 Hypertensive urgency; I70.201 Unspecified atherosclerosis of native arteries of extremities, right leg; K80.20 Calculus of gallbladder without cholecystitis without obstruction; G43.909 Migraine, unspecified, not intractable, without status migrainosus; K80.80 Other cholelithiasis without obstruction; E78.5 Hyperlipidemia, unspecified; K57.30 Diverticulosis of large intestine without perforation or abscess without bleeding; G89.29 Other chronic pain; M54.9 Dorsalgia, unspecified; Z79.891 Long term (current) use of opiate analgesic; Z88.6 Allergy status to analgesic agent; Z88.8 Allergy status to other drugs, medicaments and biological substances; Z88.7 Allergy status to serum and vaccine; Z87.891 Personal history of nicotine dependence

== ENCOUNTER → 2019-04-16 | Outpatient (CLI) | payer MEDICARE ==
[~2019-04-16] MED LIST changes: +CARAFATE 1 GM TA1 G1 PO; +CARVEDILOL12.5 MG PO; +CYMBALTA30 MG PO; +NORVASC5 MG PO; +ONDANSETRON HCL4 M2 PO; +OXYCODONE HCL 55 MG PO; +PROTONIX40 M2 PO; +REGLAN 10 MG TA10 MG PO; +SIMETHICON CHEW80 M1 PO; +VISTARIL 25 MG25 M1 PO
[2019-04-16 17:36] LABS: ABSOLUTE EOSINOPHILS 0.1 thou/uL (0.0-0.7); ABSOLUTE LYMPHOCYTES 3.1 thou/uL (0.8-5.3); ABSOLUTE MONOCYTES 0.4 thou/uL (0.0-1.2); ABSOLUTE NEUTROPHILS 4.2 thou/uL (1.6-8.1); BASOPHILS 0.2 %; EOSINOPHILS 1.7 %; HEMATOCRIT 33.1 % (37.0-47.0); HEMOGLOBIN 11.2 gm/dL (12.0-15.0); LYMPHOCYTES 39.5 %; MCH 31.8 pg (26.0-34.0); MCHC 33.7 g/dL (28.0-37.0); MCV 94.4 fL (80.0-100.0); MONOCYTES 5.2 %; MPV 6.6 fl. (7.2-11.1); NUCLEATED RBCS 0 /100WBC; PLATELET COUNT* 505 thou/uL (150-400); POLYS 53.4 %; RBC 3.51 mil/uL (4.20-5.00); RDW-CV 17.9 % (10.5-14.5); WBC 7.8 thou/uL (4.0-11.0)
[2019-04-16 17:52] LABS: PREALBUMIN 38.2 mg/dL (18.0-35.7)
[2019-04-16 17:58] LABS: ALBUMIN 3.4 g/dL (3.4-5.0); CALCIUM 9.5 mg/dL (8.5-10.1); CREATININE 0.8 mg/dL (0.6-1.3); POTASSIUM 4.3 mmol/L (3.5-5.1); TOTAL BILIRUBIN 0.1 mg/dL (<0.1-1.0); TOTAL PROTEIN 7.2 g/dL (6.4-8.2)
[2019-04-16 18:47] LABS: ESR (SEDRATE) 25 mm/hr (0-30)
== END ==
LOC: M.LAB 16:50
PROVIDERS: Internal Medicine Gastroenterology
DX: K55.9 Vascular disorder of intestine, unspecified (principal); I10 Essential (primary) hypertension; K62.5 Hemorrhage of anus and rectum

== ENCOUNTER 2020-05-06 10:29 | Emergency (ER) | payer MEDICARE ==
[~2020-05-06] VITALS: Ht 154.9 cm; Wt 56.7 kg
[2020-05-06] MEDS ORDERED: LISINOPRIL40 MG PO (10:39)
[2020-05-06 10:53] LABS: HEMATOCRIT 43.6 % (37.0-47.0); MCH 32.9 pg (26.0-34.0); MCHC 34.4 g/dL (28.0-37.0); MCV 95.4 fL (80.0-100.0); MPV 7.4 fl. (7.2-11.1); NUCLEATED RBCS 0 /100WBC; PLATELET COUNT* 459 thou/uL (150-400); RBC 4.57 mil/uL (4.20-5.00); RDW-CV 12.9 % (10.5-14.5); WBC 12.4 thou/uL (4.0-11.0)
[2020-05-06 11:02] LABS: CALCIUM 9.6 mg/dL (8.5-10.1); CREATININE 1.7 mg/dL (0.6-1.3); POTASSIUM 3.8 mmol/L (3.5-5.1)
[2020-05-06 11:07] LABS: ALBUMIN 4.3 g/dL (3.4-5.0); TOTAL BILIRUBIN 0.6 mg/dL (<0.1-1.0); TOTAL PROTEIN 9.1 g/dL (6.4-8.2)
[2020-05-06 11:39] LABS: ABSOLUTE LYMPHOCYTES 1.9 thou/uL (0.8-5.3); ABSOLUTE NEUTROPHILS 10.5 thou/uL (1.6-8.1)
[2020-05-06 11:40] LABS: PLATELET ESTIMATE INCREASED
[2020-05-06 13:32] LABS: URINE BILIRUBIN NEGATIVE (Negative); URINE BLOOD TRACE (Negative); URINE CLARITY CLEAR; URINE COLOR YELLOW; URINE GLUCOSE-RANDOM NEGATIVE (Negative); URINE KETONES NEGATIVE (Negative); URINE LEUKOCYTES-REFLEX NEGATIVE (Negative); URINE NITRITE-REFLEX NEGATIVE (Negative); URINE PROTEIN NEGATIVE (Negative); URINE UROBILINOGEN 0.2 E.U./dl (0.2-1.0)
[2020-05-06] MEDS ORDERED: CARAFATE 11 GM/10 M1 PO (15:34)
[2020-05-06 15:35] VITALS: BP 205/81
--- NOTE | 2020-05-07 14:05 | EKG ---
[place] [address] ELECTROCARDIOGRAM REPORT Name: WAQAS LARRY Room: [facility]#: [id number] Admission: 05/06/20 Attend Phys: Discharge: 05/06/20 Date of : 56 Date of Service: 05/06/20 1124 Report #: [id number] THIS REPORT FOR: //name// [facility] ED Test Date: 2020-05-06 Test Time: 11:24:32 Pat Name: WAQAS LARRY Department: Room: Gender: F [employer]: CCD : [id number] Requested By: Nahid Garcia Order Number: [id number] MD: Rojelio De Santiago Measurements Intervals [place] Rate: 94 P: 74 CT: 161 QRS: 79 QRSD: 119 T: 7 QT: 398 QTc: 498 Interpretive Statements Sinus rhythm Right atrial enlargement Nonspecific intraventricular conduction delay Possible inferior infarct, old Compared to ECG 02/23/2019 02:31:38 Atrial abnormality now present Intraventricular conduction delay now present Sinus tachycardia no longer present Myocardial infarct finding still present Electronically Signed On 05-07-2020 14:05:49 RESEARCH SCIENTIST by Rojelio De Santiago [email or web address] <ELECTRONICALLY SIGNED> By: Rojelio De Santiago MD, FACC 05/07/20 1405 1124 1124 Rojelio De Santiago MD, FACC /EPI
== END 2020-05-06 15:40 | disposition home or self-care (01) ==
LOC: M.ERS 10:29
PROVIDERS: Family Medicine
DX: R10.31 Right lower quadrant pain (principal); R11.2 Nausea with vomiting, unspecified; I10 Essential (primary) hypertension; G43.909 Migraine, unspecified, not intractable, without status migrainosus; G89.29 Other chronic pain; I25.10 Atherosclerotic heart disease of native coronary artery without angina pectoris; Z88.5 Allergy status to narcotic agent; Z88.7 Allergy status to serum and vaccine; Z88.6 Allergy status to analgesic agent